=== PATIENT | female | born 1945 | race Caucasian/White ===

== ENCOUNTER 2017-01-23 20:48 | Inpatient (IN) | payer OTHER, MEDICARE ==
[~2017-01-23] VITALS: Ht 144.8 cm; Wt 81.6 kg
[2017-01-23] MEDS ORDERED: SODIUM CHLORIDE 0.9% FLUSH 10 ML FLUSH IVF PRN (21:00)
[2017-01-23 21:18] VITALS: BP 188/97; PULSE 72; RESP 16; TEMP 98.7; O2SAT 94
[2017-01-23 21:26] LABS: AUTOMATED NEUTROPHIL # 2.4 TH/MM3 (1.8-7.7); BASOPHIL % 0.6 % (0.0-2.0); EOSINOPHIL # 0.2 TH/MM3 (0-0.4); EOSINOPHIL % 4.4 % (0.0-4.0); HEMATOCRIT 41.2 % (35.0-46.0); HEMO FLAGS DIFF FINAL; LYMPHOCYTE # 2.1 TH/MM3 (1.0-4.8); MEAN CORPUSCULAR HEMOGLOBIN 31.8 PG (27.0-34.0); MEAN CORPUSCULAR HGB CONC 33.4 % (32.0-36.0); MONO % 7.4 % (0.0-8.0); NEUT % 46.6 % (16.0-70.0); PLATELET COUNT 153 TH/MM3 (150-450); RED BLOOD COUNT 4.34 MIL/MM3 (4.00-5.30); RED CELL DISTRIBUTION WIDTH 15.8 % (11.6-17.2); WHITE BLOOD COUNT 5.1 TH/MM3 (4.0-11.0)
[2017-01-23 21:31] LABS: BACTERIA, URINE RARE /hpf; BLOOD, URINE NEG (NEG); COMMENT (UR) CULTURE INDICATED; CULTURE IF INDICATED CULTURE INDICATED; GLUCOSE,URINE 1000 mg/dL (NEG); HYALINE CAST, URINE 1 /lpf (RARE); KETONE, URINE NEG (NEG); MUCUS URINE FEW /lpf (OCC); NITRITE,URINE NEG (NEG); PH, URINE 6.5 (5.0-8.5); SQUAMOUS EPITHELIAL CELL URINE 1 /hpf (0-5); URINE COLOR LIGHT-YELLOW (YELLW/STRAW)
[2017-01-23 21:36] LABS: AMPHETAMINE, URINE NEG (NEG); BARBITURATES, URINE NEG (NEG); COCAINE, URINE NEG (NEG)
--- NOTE | 2017-01-23 21:53 | RADRPT ---
EXAM DATE/TIME: 01/23/2017 21:41 [facility] COMPARISON: No previous studies available for comparison. INDICATIONS : Altered mental status. RADIATION DOSE: 43.87 CTDIvol (mGy) MEDICAL HISTORY : Non-responsive. SURGICAL HISTORY : Non-responsive. ENCOUNTER: Initial ACUITY: 1 day PAIN SCALE: Non-responsive LOCATION: Cranial TECHNIQUE: Multiple contiguous axial images were obtained of the head. Using automated exposure control and adj ustment of the mA and/or kV according to patient size, radiation dose was kept as low as reasonably a chievable to obtain optimal diagnostic quality images. FINDINGS: Diffuse cerebral atrophy is noted. Moderate periventricular and subcortical white matter small vesse l ischemic changes are noted bilaterally. There is no acute infarct, acute hemorrhage, mass effect o r extra-axial fluid collections. CONCLUSION: 1. Moderate periventricular and subcortical white matter small vessel ischemic changes bilaterally. 2. Diffuse cerebral atrophy. 3. No acute infarct, acute hemorrhage, mass effect or extra-axial fluid collections. Suhas Patino MD on January 23, 2017 at 21:49 Board Certified Radiologist. This report was verified electronically.
--- NOTE | 2017-01-23 22:04 | PD ---
HPI Chief Complaint: Psychiatric Symptoms Time Seen by Provider: 21:15 Travel History International Travel<30 days: No Contact w/Intl Traveler<30days: No Traveled to known affect area: No History of Present Illness HPI Patient is a 72-year-old female brought into the emergency Department under Lea act for psychiatric evaluation. Patient is not forthcoming and is uncooperative with interview. Per the Lea act she has a history of schizophrenia as well as dementia and has been noncompliant with her medications. Additionally patient has been urinating on herself and has made suicidal statements. She has no plan and per the report has not made any previous attempts. PFS Past Medical History Narrative Medical Pt is uncooperative Dementia: Yes (per lea act report) Schizophrenia: Yes (per lea act report) Tetanus Vaccination: Unknown ?: Not Past Surgical History Surgical History: Unable to Obtain Social History Alcohol Use: No (unable to obtain) Tobacco Use: No Substance Use: No (unable to obtain) Allergies-Medications (Allergen,Severity, Reaction): Coded Allergies: UNOBTAINABLE (Unverified , 01/23/17) Reported Meds & Prescriptions Reported Meds & Active Scripts Active Reported Kenrick Aspirin (Aspirin) 325 Mg Tab Unknown Dose PO Acetaminophen Extra Strength (Acetaminophen) 500 Mg Tablet Unknown Dose PO DIRECTED Carvedilol 25 Mg Tab 25 Mg PO BID Review of Systems ROS Limitations: Uncooperative, Refused Except as stated in HPI: all other systems reviewed are Neg Physical Exam Narrative GENERAL: Obese, well-developed, alert elderly female. Uncooperative with examination SKIN: Focused skin assessment warm/dry. HEAD: Atraumatic. Normocephalic. EYES: Pupils equal and round. No scleral icterus. No injection or drainage. ENT: No nasal bleeding or discharge. Mucous membranes pink and moist. NECK: Trachea midline. No JVD. CARDIOVASCULAR: Regular rate and rhythm. No murmur appreciated. RESPIRATORY: No accessory muscle use. Clear to auscultation. Breath sounds equal bilaterally. GASTROINTESTINAL: Abdomen obese, soft, non-tender, nondistended. Hepatic and splenic margins not palpable. Positive bowel sounds, no rebound, no guarding MUSCULOSKELETAL: No obvious deformities. No clubbing. No cyanosis. No edema. NEUROLOGICAL: Awake and alert. No obvious cranial nerve deficits. Motor grossly within normal limits. Normal speech. PSYCHIATRIC: Appropriate mood and affect; insight and judgment impaired. Data Data Last Documented VS Vital Signs Date Time Temp Pulse Resp B/P Pulse Ox O2 Delivery O2 Flow Rate FiO2 01/24/17 01:31 72 16 178/84 95 Room Air 01/23/17 21:18 98.7 Orders Complete Blood Count With Diff (01/23/17 20:57) Comprehensive Metabolic Panel (01/23/17 20:57) Thyroid Stimulating Hormone (01/23/17 20:57) Urinalysis - C+S If Indicated (01/23/17 20:57) Cath For Specimen (01/23/17 20:57) Psych Screen (01/23/17 20:57) Sodium Chloride 0.9% Flush (Ns Flush) (01/23/17 21:00) Drug Screen, Random Urine (01/23/17 20:57) Alcohol (Ethanol) (01/23/17 20:57) Salicylates (Aspirin) (01/23/17 20:57) Tylenol (Acetaminophen) (01/23/17 20:57) Ct Brain W/O Iv Contrast(Rout) (01/23/17 ) Urine Culture (01/23/17 21:11) Ceftriaxone Inj (Rocephin Inj) (01/23/17 22:15) Chest, Single Ap (01/23/17 ) Insulin Human Regular Inj (Novolin R Inj (01/23/17 22:45) Sodium Chlor 0.9% 1000 Ml Inj (Ns 1000 M (01/23/17 22:45) Hydralazine Inj (Apresoline Inj) (01/23/17 22:45) Restraints Non-Violent ANGIE.Q3H (01/23/17 22:41) B-Type Natriuretic Peptide (01/23/17 23:00) Metoprolol Tartrate Inj (Lopressor Inj) (01/23/17 23:45) Blood Glucose (01/24/17 00:43) Metoprolol Tartrate Inj (Lopressor Inj) (01/24/17 01:00) Labs Laboratory Tests Test 01/23/17 01/23/17 21:11 23:00 White Blood Count 5.1 TH/MM3 Red Blood Count 4.34 MIL/MM3 Hemoglobin 13.8 GM/DL Hematocrit 41.2 % Mean Corpuscular Volume 95.0 FL Mean Corpuscular Hemoglobin 31.8 PG Mean Corpuscular Hemoglobin 33.4 % Concent Red Cell Distribution Width 15.8 % Platelet Count 153 TH/MM3 Mean Platelet Volume 11.2 FL Neutrophils (%) (Auto) 46.6 % Lymphocytes (%) (Auto) 41.0 % Monocytes (%) (Auto) 7.4 % Eosinophils (%) (Auto) 4.4 % Basophils (%) (Auto) 0.6 % Neutrophils # (Auto) 2.4 TH/MM3 Lymphocytes # (Auto) 2.1 TH/MM3 Monocytes # (Auto) 0.4 TH/MM3 Eosinophils # (Auto) 0.2 TH/MM3 Basophils # (Auto) 0.0 TH/MM3 CBC Comment DIFF FINAL Differential Comment Urine Color LIGHT-YELLOW Urine Turbidity CLEAR Urine pH 6.5 Urine Specific [place] 1.016 Urine Protein 100 mg/dL Urine Glucose (UA) 1000 mg/dL Urine Ketones NEG mg/dL Urine Occult Blood NEG Urine Nitrite NEG Urine Bilirubin NEG Urine Urobilinogen LESS THAN 2.0 MG/DL Urine Leukocyte Esterase NEG Urine RBC 1 /hpf Urine WBC 9 /hpf Urine Squamous Epithelial 1 /hpf Cells Urine Bacteria RARE /hpf Urine Hyaline Casts 1 /lpf Urine Mucus FEW /lpf Microscopic Urinalysis Comment CULTURE INDICATED Sodium Level 140 MEQ/L Potassium Level 3.7 MEQ/L Chloride Level 103 MEQ/L Carbon Dioxide Level 30.0 MEQ/L Anion Gap 7 MEQ/L Blood Urea Nitrogen 17 MG/DL Creatinine 0.95 MG/DL Estimat Glomerular Filtration 58 ML/MIN Rate Random Glucose 316 MG/DL Calcium Level 9.4 MG/DL Total Bilirubin 0.2 MG/DL Aspartate Amino Transf 43 U/L (AST/SGOT) Alanine Aminotransferase 67 U/L (ALT/SGPT) Alkaline Phosphatase 149 U/L Total Protein 8.0 GM/DL Albumin 3.5 GM/DL Thyroid Stimulating Hormone 1.870 uIU/ML 3rd Gen Salicylates Level 8.1 MG/DL Urine Opiates Screen NEG Acetaminophen Level 13.4 MCG/ML Urine Barbiturates Screen NEG Urine Amphetamines Screen NEG Urine Benzodiazepines Screen NEG Urine Cocaine Screen NEG Urine Cannabinoids Screen NEG Ethyl Alcohol Level LESS THAN 3 MG/DL B-Type Natriuretic Peptide 50 PG/ML MDM Medical Decision Making Medical Screen Exam Complete: Yes Emergency Medical Condition: Yes Interpretation(s) Last Impressions Head CT 01/23/17 0000 Signed Impressions: Service Date/Time: Monday, January 23, 2017 21:41 - CONCLUSION: 1. Moderate periventricular and subcortical white matter small vessel ischemic changes bilaterally. 2. Diffuse cerebral atrophy. 3. No acute infarct, acute hemorrhage, mass effect or extra-axial fluid collections. Suhas Patino MD Laboratory Tests Test 01/23/17 21:11 White Blood Count 5.1 TH/MM3 Red Blood Count 4.34 MIL/MM3 Hemoglobin 13.8 GM/DL Hematocrit 41.2 % Mean Corpuscular Volume 95.0 FL Mean Corpuscular Hemoglobin 31.8 PG Mean Corpuscular Hemoglobin 33.4 % Concent Red Cell Distribution Width 15.8 % Platelet Count 153 TH/MM3 Mean Platelet Volume 11.2 FL Neutrophils (%) (Auto) 46.6 % Lymphocytes (%) (Auto) 41.0 % Monocytes (%) (Auto) 7.4 % Eosinophils (%) (Auto) 4.4 % Basophils (%) (Auto) 0.6 % Neutrophils # (Auto) 2.4 TH/MM3 Lymphocytes # (Auto) 2.1 TH/MM3 Monocytes # (Auto) 0.4 TH/MM3 Eosinophils # (Auto) 0.2 TH/MM3 Basophils # (Auto) 0.0 TH/MM3 CBC Comment DIFF FINAL Differential Comment Urine Color LIGHT-YELLOW Urine Turbidity CLEAR Urine pH 6.5 Urine Specific [place] 1.016 Urine Protein 100 mg/dL Urine Glucose (UA) 1000 mg/dL Urine Ketones NEG mg/dL Urine Occult Blood NEG Urine Nitrite NEG Urine Bilirubin NEG Urine Urobilinogen LESS THAN 2.0 MG/DL Urine Leukocyte Esterase NEG Urine RBC 1 /hpf Urine WBC 9 /hpf Urine Squamous Epithelial 1 /hpf Cells Urine Bacteria RARE /hpf Urine Hyaline Casts 1 /lpf Urine Mucus FEW /lpf Microscopic Urinalysis Comment CULTURE INDICATED Sodium Level 140 MEQ/L Potassium Level 3.7 MEQ/L Chloride Level 103 MEQ/L Carbon Dioxide Level 30.0 MEQ/L Anion Gap 7 MEQ/L Blood Urea Nitrogen 17 MG/DL Creatinine 0.95 MG/DL Estimat Glomerular Filtration 58 ML/MIN Rate Random Glucose 316 MG/DL Calcium Level 9.4 MG/DL Total Bilirubin 0.2 MG/DL Aspartate Amino Transf 43 U/L (AST/SGOT) Alanine Aminotransferase 67 U/L (ALT/SGPT) Alkaline Phosphatase 149 U/L Total Protein 8.0 GM/DL Albumin 3.5 GM/DL Thyroid Stimulating Hormone 1.870 uIU/ML 3rd Gen Salicylates Level 8.1 MG/DL Urine Opiates Screen NEG Acetaminophen Level 13.4 MCG/ML Urine Barbiturates Screen NEG Urine Amphetamines Screen NEG Urine Benzodiazepines Screen NEG Urine Cocaine Screen NEG Urine Cannabinoids Screen NEG Ethyl Alcohol Level LESS THAN 3 MG/DL Vital Signs Date Time Temp Pulse Resp B/P Pulse Ox O2 Delivery O2 Flow Rate FiO2 01/23/17 21:18 98.7 72 16 188/97 94 Differential Diagnosis UTI versus CVA versus mood disorder versus noncompliance versus delirium versus dementia versus other Narrative Course Patient is a 72-year-old female brought into the emergency department for psychiatric evaluation currently under a Lea act. Patient has allegedly made suicidal attempts and has been noncompliant with medications for schizophrenia. Patient is not forthcoming with medical history. Labs and imaging ordered and pending. Patient is mildly hypertensive on arrival. CBC is unremarkable Chemistry with mild transaminitis, glucose 316. Urine drug screen is negative, acetaminophen level, salicylates, alcohol within normal limits Urinalysis with elevated white blood cells, rare bacteria, mucus, elevated glucose level of 1000. Rocephin 1 g IV 1 dose ordered, IV fluids ordered Insulin 8 units subcutaneous ordered Hydralazine 10 mg IV [address] scan of the brain is negative for acute infarct, hemorrhage, mass. It does show moderate periventricular and subcortical white matter small vessel ischemic changes bilaterally. And diffuse cerebral atrophy. Chest x-ray shows bibasilar streakiness consistent with atelectasis and/or mild infiltrate. BNP obtained, resulted at 50. Discussed results with my attending physician. Patient's lung sounds are clear, she is currently on room air with O2 sat of 96-97%. Blood glucose reassessed at 271 0020- Blood pressure remained elevated after initial dose of hydralazine, a dose of Lopressor 2.5 mg IV was given. Patient's blood pressure is currently 186/84 with a heart rate of 75. 0040-inventory of patients belongings containing carvedilol, and diabetic test strips. Patient's past medical history will be updated this time to reflect diabetes and hypertension. Patient is medically clear for psychiatric evaluation at this time. Diagnosis Primary Impression: UTI (urinary tract infection) Qualified Code: N39.0 - Urinary tract infection without hematuria, site unspecified Additional Impressions: Noncompliance with medication regimen Hypertension Qualified Code: I10 - Essential hypertension Hyperglycemia Schizophrenia, unspecified Med/Other Pt SpecificInfo: Prescription(s) given Scripts Cephalexin 500 Mg [id number] Mg PO Q8H #30 CAP Ref 0 Prov:Nicole Monaco 01/24/17 Condition: Stable Nicole Monaco January 23, 2017 22:04
[2017-01-23 22:06] LABS: ANION GAP 7 MEQ/L (5-15); AST (GOT) 43 U/L (15-37); BLOOD UREA NITROGEN 17 MG/DL (7-18); CHLORIDE 103 MEQ/L (98-107); GLOMERULAR FILTRATION RATE 58 ML/MIN (>89); POTASSIUM 3.7 MEQ/L (3.5-5.1); SODIUM (NA) 140 MEQ/L (136-145)
[2017-01-23] MEDS ORDERED: cefTRIAXone INJ 1,000 MG in SODIUM CHLORIDE 0.9% INJ 100 ML IV ONE (22:15)
[2017-01-23 22:16] LABS: ACETAMINOPHEN 13.4 MCG/ML (10.0-30.0); ALKALINE PHOSPHATASE 149 U/L (45-117); ALT (GPT) 67 U/L (10-53); TOTAL BILIRUBIN ADULT 0.2 MG/DL (0.2-1.0)
[2017-01-23 22:40] VITALS: BP 207/98; PULSE 70; RESP 16; O2SAT 94
[2017-01-23] MEDS ORDERED: INSULIN HUMAN REGULAR 1,000 UNITS/10 ML VIAL SQ ONE (22:45)
[2017-01-23] MEDS ORDERED: hydrALAZINE HCL 20 MG/ML VIAL IV PUSH ONE (22:45)
[2017-01-23] MEDS ORDERED: SODIUM CHLOR 0.9% 1000 ML INJ 1,000 ML IV ONE (22:45)
--- NOTE | 2017-01-23 22:48 | RADRPT ---
EXAM DATE/TIME: 01/23/2017 22:22 [facility] COMPARISON: No previous studies available for comparison. INDICATIONS : Chest pain. MEDICAL HISTORY : None. SURGICAL HISTORY : None. ENCOUNTER: Initial ACUITY: 1 day PAIN SCORE: 0/10 LOCATION: Bilateral chest FINDINGS: Bibasilar streakiness is noted consistent with atelectasis and/or infiltrates. Clinical correlation is recommended. The heart is top normal in size. CONCLUSION: 1. Bibasilar streakiness consistent with atelectasis and/or mild infiltrates. Clinical correlation is recommended. Suhas Patino MD on January 23, 2017 at 22:45 Board Certified Radiologist. This report was verified electronically.
[2017-01-23 22:58] VITALS: BP 194/88; PULSE 74; RESP 17; O2SAT 94
[2017-01-23 23:34] VITALS: BP 214/95; PULSE 76; RESP 16; O2SAT 96
[2017-01-23] MEDS ORDERED: METOPROLOL TARTRATE 5 MG/5 ML VIAL IV PUSH ONE (23:45)
[2017-01-23 23:54] VITALS: BP 205/89; PULSE 75; RESP 17; O2SAT 95
[2017-01-23 23:59] VITALS: BP 186/84; PULSE 74; RESP 17; O2SAT 95
[2017-01-24] VITALS (7 sets, daily range): BP systolic 134–208; BP diastolic 84–116; PULSE 3–82; RESP 16–20; TEMP 97–97.6; O2SAT 95–97
[2017-01-24] MEDS ORDERED: CARV25TA PO (00:40)
[2017-01-24] MEDS ORDERED: BAYE325T PO (00:40)
[2017-01-24] MEDS ORDERED: ACET-898 PO (00:40)
[2017-01-24] MEDS ORDERED: METOPROLOL TARTRATE 5 MG/5 ML VIAL IV PUSH ONE (01:00)
[2017-01-24] MEDS ORDERED: CEPH500C PO (04:18)
[2017-01-24] MEDS ORDERED: CARVEDILOL 12.5 MG TAB PO ONE (06:45)
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
[2017-01-24] MEDS ORDERED: MAGNESIUM HYDROXIDE SUSP 30 ML CUP PO PRN (11:30)
[2017-01-24] MEDS ORDERED: ALUMINUM/MAGNESIUM/SIMETH 30 ML CUP PO PRN (11:30)
[2017-01-24] MEDS ORDERED: cloNIDine HCL 0.2 MG TAB PO ONE (13:15)
[2017-01-24] MEDS ORDERED: DEXTROSE 50% IN WATER 50 ML VIAL(D50) IV PRN (16:00)
[2017-01-24] MEDS: INSULIN ASPART SUPPLEMENTAL SCALE SQ SCH ×2 (16:00→21:10)
[2017-01-24] MEDS ORDERED: GLUCAGON 1 MG/ML VIAL OTHER PRN (16:00)
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
[2017-01-24] MEDS ORDERED: METOPROLOL TARTRATE 25 MG TAB PO SCH (21:00)
[2017-01-24] MEDS: CARVEDILOL 12.5 MG TAB PO SCH (21:08)
[2017-01-24] MEDS: ACETAMINOPHEN 325 MG TAB PO PRN (21:15)
[2017-01-24 22:54] LABS: BLOOD, URINE NEG (NEG); GLUCOSE,URINE 1000 mg/dL (NEG); HYALINE CAST, URINE 1 /lpf (RARE); KETONE, URINE NEG (NEG); MUCUS URINE FEW /lpf (OCC); NITRITE,URINE NEG (NEG); SQUAMOUS EPITHELIAL CELL URINE 5 /hpf (0-5); URINE COLOR YELLOW (YELLW/STRAW)
[2017-01-24 22:59] LABS: COMMENT (UR) CULTURE INDICATED; CULTURE IF INDICATED CULTURE INDICATED
[2017-01-25] MEDS: cloNIDine HCL 0.1 MG TAB PO PRN (06:03)
[2017-01-25 06:12] VITALS: BP 164/71; PULSE 73; RESP 20; TEMP 98.6; O2SAT 95
[2017-01-25] MEDS: INSULIN ASPART SUPPLEMENTAL SCALE SQ SCH ×4 (06:42→22:13)
[2017-01-25 06:53] VITALS: BP 187/100; PULSE 70
[2017-01-25 08:35] LABS: HEMOGLOBIN A1a 1.5 %; HEMOGLOBIN A1b 2.9 %; HEMOGLOBIN Ao 76.7 %; HEMOGLOBIN LA1C 2.7 %; HEMOGLOBIN P3 5.5 %
[2017-01-25] MEDS: CARVEDILOL 12.5 MG TAB PO SCH ×2 (09:00→22:06)
[2017-01-25] MEDS ORDERED: LISINOPRIL 10 MG TAB PO SCH (09:00)
--- NOTE | 2017-01-25 09:09 | RADRPT ---
EXAM DATE/TIME: 01/25/2017 08:14 [place] COMPARISON: No previous studies available for comparison. INDICATIONS : Abnormal labs. MEDICAL HISTORY : Hypertension. Dementia. Diabetes. PTSD. Schizophrenia. SURGICAL HISTORY : ENCOUNTER: Initial ACUITY: 1 day PAIN SCORE: 2/10 LOCATION: Right upper quadrant MEASUREMENTS: LIVER: 18.6 cm length COMMON DUCT: 6 mm RIGHT KIDNEY: 11.4 x 6.0 x 6.4 cm SPLEEN: 8.1 cm length FINDINGS: LIVER: Slight diffuse increased echogenicity without evidence for volume loss or ductal dilatation. COMMON DUCT: No intraluminal mass or stone visualized. GALLBLADDER: Contains no stones, demonstrates no wall thickening or pericholecystic fluid. PANCREAS: The visualized portions are within normal limits. RIGHT KIDNEY: No hydronephrosis, stone or mass. Incidental note of trace perinephric fluid SPLEEN: No focal lesion. CONCLUSION: 1. Incidental note of nonspecific trace right perinephric fluid. Right kidney is otherwise normal in appearance. 2. Diffusely increased hepatic echogenicity may reflect mild hepatic steatosis. 3. Otherwise, unremarkable ultrasound examination of the right upper quadrant. Scar Reinoso MD on January 25, 2017 at 8:59 Board Certified Radiologist. This report was verified electronically.
[2017-01-25 09:16] LABS: ANION GAP 6 MEQ/L (5-15); BICARBONATE 31.4 MEQ/L (21.0-32.0); BLOOD UREA NITROGEN 20 MG/DL (7-18); CHLORIDE 100 MEQ/L (98-107); GLOMERULAR FILTRATION RATE 73 ML/MIN (>89); POTASSIUM 3.7 MEQ/L (3.5-5.1); SODIUM (NA) 137 MEQ/L (136-145)
[2017-01-25 09:17] LABS: HDL CHOLESTEROL 43.5 MG/DL (40.0-60.0); LDL CHOLESTEROL 129 MG/DL (0-99)
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
[2017-01-25] MEDS ORDERED: PNEUMOCOCCAL POLYVALENT INJ 25 MCG/0.5 ML SYR IM ONE (10:00)
[2017-01-25] MEDS ORDERED: LISINOPRIL 10 MG TAB PO ONE (10:15)
[2017-01-25] MEDS: glyBURIDE 2.5 MG TAB PO SCH (10:15)
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
[2017-01-25] MEDS: metFORMIN HCL 500 MG TAB PO SCH ×2 (11:39→18:00)
[2017-01-25] MEDS ORDERED: LORazepam 0.5 MG TAB PO PRN (15:00)
[2017-01-25] MEDS ORDERED: LORazepam 2 MG/ML VIAL IM PRN (15:00)
[2017-01-25] MEDS ORDERED: diphenhydrAMINE HCL 25 MG CAP PO PRN (15:00)
[2017-01-25] MEDS ORDERED: diphenhydrAMINE HCL 50 MG/ML VIAL IM PRN (15:00)
[2017-01-25 17:02] VITALS: BP 145/67; PULSE 67; RESP 16; TEMP 98; O2SAT 95
[2017-01-25 18:23] VITALS: BP 145/67; PULSE 67; RESP 16; TEMP 98; O2SAT 95
--- NOTE | 2017-01-25 19:07 | HHI.PR ---
Subjective Remarks Patient denies cp/sob denies fevers or chills Bop still significantly elevated and uncontrolled. Objective Vitals Vital Signs Date Time Temp Pulse Resp B/P Pulse Ox O2 Delivery O2 Flow Rate FiO2 01/25/17 18:23 98.0 67 16 145/67 95 01/25/17 17:02 98.0 67 16 145/67 95 01/25/17 06:53 70 187/100 01/25/17 06:12 98.6 73 20 164/71 95 I/O 01/24/17 01/24/17 01/24/17 01/25/17 01/25/17 01/25/17 07:00 15:00 23:00 07:00 15:00 23:00 Intake Total 250 ml 990 ml 720 ml Balance 250 ml 990 ml 720 ml Intake Oral 250 ml 990 ml 720 ml # Voids 1 2 3 1 Result Diagram: 01/23/17 2111 01/25/17 0746 Imaging Last Impressions Liver Ultrasound 01/25/17 0000 Signed Impressions: Service Date/Time: Wednesday, January 25, 2017 08:14 - CONCLUSION: 1. Incidental note of nonspecific trace right perinephric fluid. Right kidney is otherwise normal in appearance. 2. Diffusely increased hepatic echogenicity may reflect mild hepatic steatosis. 3. Otherwise, unremarkable ultrasound examination of the right upper quadrant. Scar Reinoso MD Head CT 01/23/17 0000 Signed Impressions: Service Date/Time: Monday, January 23, 2017 21:41 - CONCLUSION: 1. Moderate periventricular and subcortical white matter small vessel ischemic changes bilaterally. 2. Diffuse cerebral atrophy. 3. No acute infarct, acute hemorrhage, mass effect or extra-axial fluid collections. Suhas Patino MD Chest X-Ray 01/23/17 0000 Signed Impressions: Service Date/Time: Monday, January 23, 2017 22:22 - CONCLUSION: 1. Bibasilar streakiness consistent with atelectasis and/or mild infiltrates. Clinical correlation is recommended. Suhas Patino MD Objective Remarks GENERAL: This is an obese, well-developed patient, in no apparent distress. SKIN: Warm and dry. HEAD: No temporal or scalp tenderness. EYES: Pupils equal round and reactive. No scleral icterus. No injection or drainage. ENT: Nose without bleeding. Throat without erythema. Uvula midline. Airway patent. NECK: Trachea midline. No JVD or lymphadenopathy. CARDIOVASCULAR: Regular rate and rhythm without murmurs, gallops, or rubs. RESPIRATORY: Diminished breath sounds. No wheezes, rales, or rhonchi. GASTROINTESTINAL: Abdomen soft, non-tender, rounded, obese. Bowel sounds present but distant. MUSCULOSKELETAL: Extremities without clubbing, cyanosis, or edema. Right foot inversion. Ambulates with walker use. NEUROLOGICAL: Awake and alert. Oriented to place, person. Forgetful. Motor and sensory grossly within normal limits. Normal speech. Medications and IVs Current Medications Medications (Trade) Dose Ordered Sig/Luis Miguel Route Start Time Stop Time Status Last Admin (NS Flush) 2 ml UNSCH PRN IVF 01/23/17 21:00 (Tylenol) 650 mg Q4H PRN PO 01/24/17 11:30 01/24/17 21:15 (Milk Of Magnesia Liq) 30 ml DAILY PRN PO 01/24/17 11:30 (Mag-Al Plus Susp Liq) 30 ml Q6H PRN PO 01/24/17 11:30 (D50w (Vial) Inj) 50 ml UNSCH PRN IV 01/24/17 16:00 (Glucagon Inj) 1 mg UNSCH PRN OTHER 01/24/17 16:00 (Catapres) 0.1 mg Q6H PRN PO 01/24/17 16:00 01/25/17 06:03 (Coreg) 25 mg BID PO 01/24/17 21:00 01/25/17 09:00 (Prinivil) 20 mg DAILY PO 01/26/17 09:00 (Glucophage) 500 mg BIDPC PO 01/25/17 10:15 01/25/17 18:00 (Diabeta) 2.5 mg DAILYAC PO 01/25/17 10:15 (Abilify) 5 mg DAILY PO 01/26/17 09:00 (Ativan) 0.5 mg Q8H PRN PO 01/25/17 15:00 (Ativan Inj) 0.5 mg Q8H PRN IM 01/25/17 15:00 (Benadryl) 25 mg Q6H PRN PO 01/25/17 15:00 (Benadryl Inj) 25 mg Q6H PRN IM 01/25/17 15:00 (Melatonin) 5 mg HS PRN PO 01/25/17 15:00 Urinary Catheter: No Vascular Central Line Catheter: No A/P Problem List: (1) Hypertension ICD Code: I10 Status: Acute (2) DM2 (diabetes mellitus, type 2) ICD Code: E11.9 Status: Acute Assessment and Plan Patient is a 72-year-old female with primary medical history of hypertension, diabetes, schizophrenia, obesity, dementia, hydrocephalus, fatty liver, uropathy, kidney stones who came into the hospital as a Lea act for psychiatric evaluation. According to review of records, patient has been noncompliant with her medications. She is now admitted to inpatient psychiatry unit for further evaluation. Consulted for medical management. Schizophrenia - managed by psychiatry team Hypertension, accelerated - Noncompliant with medications from home. UA showed leaking protein, most probably uncontrolled - Patient started on carvedilol 25 mg by mouth twice a day and lisinopril 10 minutes by mouth daily. However BP still very elevated. - Continue clonidine as needed. DM 2 - Previously on insulin at home but does not know the dose or how she is taking it - Check hemoglobin A1c - 10.6 -Continue SSI with insulin NovoLog. - Accu-Cheks. Monitor for hypoglycemia - We'll start on oral metformin and glyburide for uncontrolled diabetes mellitus and very elevated blood sugars. However the patient might require insulin. Questionable hydrocephalus - Patient had poor balance, needing walker with ambulation - Complains of forgetfulness and numbness in her hand -CT of the head showed moderate periventricular and subcortical white matter small vessel ischemic changes bilaterally. Diffuse cerebral atrophy. No acute infarct or hemorrhage, mass effect or extra-axial fluid collections, however does not make detection of signs concurrent with hydrocephalus. Transaminitis, elevated liver enzymes - For enzymes likely secondary to hepatic steatosis as observed on ultrasound. - Trend liver enzymes - Check hepatitis panel - negative DVT prop ambulatory Problem Qualifiers (1) Hypertension: Qualified Code: I10 - Essential hypertension Marcelino Hernandez MD January 25, 2017 19:07
[2017-01-26 05:10] VITALS: BP 142/65; PULSE 60; RESP 18; TEMP 97.2; O2SAT 93
[2017-01-26] MEDS: INSULIN ASPART SUPPLEMENTAL SCALE SQ SCH ×4 (06:45→20:00)
[2017-01-26] MEDS ORDERED: ARIPiprazole 5 MG TAB PO SCH (09:00)
[2017-01-26] MEDS: CARVEDILOL 12.5 MG TAB PO SCH ×2 (09:01→20:00)
[2017-01-26] MEDS: metFORMIN HCL 500 MG TAB PO SCH ×2 (09:01→18:00)
[2017-01-26] MEDS: glyBURIDE 2.5 MG TAB PO SCH (09:01)
[2017-01-26] MEDS: LISINOPRIL 20 MG TAB PO SCH (09:01)
[2017-01-26] MEDS: ACETAMINOPHEN 325 MG TAB PO PRN ×2 (09:12→20:00)
[2017-01-26] MEDS: PRAVASTATIN SOD 20 MG TAB PO SCH (11:00)
[2017-01-26] MEDS ORDERED: glyBURIDE 2.5 MG TAB PO ONE (11:00)
--- NOTE | 2017-01-26 11:03 | HHI.PR ---
Subjective Remarks Bp seems to be better Patient c/o pain, tingling and numbness on both hands denies fevers/chills denies cough blood sugars still elevated in the 200's Objective Vitals Vital Signs Date Time Temp Pulse Resp B/P Pulse Ox O2 Delivery O2 Flow Rate FiO2 01/26/17 05:10 97.2 60 18 142/65 93 01/25/17 18:23 98.0 67 16 145/67 95 01/25/17 17:02 98.0 67 16 145/67 95 I/O 01/25/17 01/25/17 01/25/17 01/26/17 01/26/17 01/26/17 07:00 15:00 23:00 07:00 15:00 23:00 Intake Total 1320 ml Output Total 1 ml 1 ml Balance 1319 ml -1 ml Intake Oral 1320 ml Output Stool Total 1 ml 1 ml # Voids 3 4 1 Result Diagram: 01/23/17 2111 01/25/17 0746 Imaging Last Impressions Liver Ultrasound 01/25/17 0000 Signed Impressions: Service Date/Time: Wednesday, January 25, 2017 08:14 - CONCLUSION: 1. Incidental note of nonspecific trace right perinephric fluid. Right kidney is otherwise normal in appearance. 2. Diffusely increased hepatic echogenicity may reflect mild hepatic steatosis. 3. Otherwise, unremarkable ultrasound examination of the right upper quadrant. Scar Reinoso MD Head CT 01/23/17 0000 Signed Impressions: Service Date/Time: Monday, January 23, 2017 21:41 - CONCLUSION: 1. Moderate periventricular and subcortical white matter small vessel ischemic changes bilaterally. 2. Diffuse cerebral atrophy. 3. No acute infarct, acute hemorrhage, mass effect or extra-axial fluid collections. Suhas Patino MD Chest X-Ray 01/23/17 0000 Signed Impressions: Service Date/Time: Monday, January 23, 2017 22:22 - CONCLUSION: 1. Bibasilar streakiness consistent with atelectasis and/or mild infiltrates. Clinical correlation is recommended. Suhas Patino MD Objective Remarks GENERAL: This is an obese, well-developed patient, in no apparent distress. SKIN: Warm and dry. HEAD: No temporal or scalp tenderness. EYES: Pupils equal round and reactive. No scleral icterus. No injection or drainage. ENT: Nose without bleeding. Throat without erythema. Uvula midline. Airway patent. NECK: Trachea midline. No JVD or lymphadenopathy. CARDIOVASCULAR: Regular rate and rhythm without murmurs, gallops, or rubs. RESPIRATORY: Diminished breath sounds. No wheezes, rales, or rhonchi. GASTROINTESTINAL: Abdomen soft, non-tender, rounded, obese. Bowel sounds present but distant. MUSCULOSKELETAL: Extremities without clubbing, cyanosis, or edema. Right foot inversion. Ambulates with walker use. NEUROLOGICAL: Awake and alert. Oriented to place, person. Forgetful. Motor and sensory grossly within normal limits. Normal speech. Procedures none Medications and IVs Current Medications Medications (Trade) Dose Ordered Sig/Luis Miguel Route Start Time Stop Time Status Last Admin (NS Flush) 2 ml UNSCH PRN IVF 01/23/17 21:00 (Tylenol) 650 mg Q4H PRN PO 01/24/17 11:30 01/26/17 09:12 (Milk Of Magnesia Liq) 30 ml DAILY PRN PO 01/24/17 11:30 (Mag-Al Plus Susp Liq) 30 ml Q6H PRN PO 01/24/17 11:30 (D50w (Vial) Inj) 50 ml UNSCH PRN IV 01/24/17 16:00 (Glucagon Inj) 1 mg UNSCH PRN OTHER 01/24/17 16:00 (Catapres) 0.1 mg Q6H PRN PO 01/24/17 16:00 01/25/17 06:03 (Coreg) 25 mg BID PO 01/24/17 21:00 01/26/17 09:01 (Prinivil) 20 mg DAILY PO 01/26/17 09:00 01/26/17 09:01 (Glucophage) 500 mg BIDPC PO 01/25/17 10:15 01/26/17 09:01 (Ativan) 0.5 mg Q8H PRN PO 01/25/17 15:00 (Ativan Inj) 0.5 mg Q8H PRN IM 01/25/17 15:00 (Benadryl) 25 mg Q6H PRN PO 01/25/17 15:00 (Benadryl Inj) 25 mg Q6H PRN IM 01/25/17 15:00 (Melatonin) 5 mg HS PRN PO 01/25/17 15:00 (Neurontin) 300 mg TID PO 01/26/17 13:00 01/26/17 12:14 (Diabeta) 5 mg DAILYAC PO 01/27/17 08:00 (Pravachol) 20 mg DAILY PO 01/26/17 11:00 (Cipro) 500 mg Q12HR PO 01/26/17 21:00 01/29/17 20:59 (Abilify) 10 mg DAILY PO 01/27/17 09:00 Urinary Catheter: No Vascular Central Line Catheter: No A/P Problem List: (1) Hypertension ICD Code: I10 Status: Acute (2) DM2 (diabetes mellitus, type 2) ICD Code: E11.9 Status: Acute Assessment and Plan Patient is a 72-year-old female with primary medical history of hypertension, diabetes, schizophrenia, obesity, dementia, hydrocephalus, fatty liver, uropathy, kidney stones who came into the hospital as a Lea act for psychiatric evaluation. According to review of records, patient has been noncompliant with her medications. She is now admitted to inpatient psychiatry unit for further evaluation. Consulted for medical management. Schizophrenia - managed by psychiatry team Hypertension, accelerated - Noncompliant with medications from home. UA showed leaking protein, most probably uncontrolled. - Patient started on carvedilol 25 mg by mouth twice a day and lisinopril 10 mg po daily. - Lisinopril dose was increased to 20 mg po daily on 01/25 with improvement on BP. -Continue current antihypertensive medications. Continue clonidine when necessary. DM 2 - Check hemoglobin A1c - 10.6 -Resume home insulin. However given the patient's associated schizophrenia. He is probably not the best idea to keep the patient on insulin, especially if she doesn't have someone that will take care of her. -Patient started on oral metformin and glyburide with some degree of improvement in blood sugars. I will increase the dose of glyburide from 2.5-5 minutes by mouth daily. -Also after the patient takes metformin for a week and there are no significant GI adverse effects I would increase metformin dose to 1000 by mouth twice a day. -For now continue oral metformin and glyburide. Continue to monitor Accu- Cheks and continue to cover. Elevated blood sugars with SSI with insulin NovoLog. Questionable hydrocephalus - Patient had poor balance, needing walker with ambulation - Complains of forgetfulness and numbness in her hand -CT of the head showed moderate periventricular and subcortical white matter small vessel ischemic changes bilaterally. Diffuse cerebral atrophy. No acute infarct or hemorrhage, mass effect or extra-axial fluid collections, however does not make detection of signs concurrent with hydrocephalus. Transaminitis, elevated liver enzymes - For enzymes likely secondary to hepatic steatosis as observed on ultrasound. - Trend liver enzymes - Hepatitis profile negative. DVT prop ambulatory Problem Qualifiers (1) Hypertension: Qualified Code: I10 - Essential hypertension Marcelino Hernandez MD January 26, 2017 11:03
[2017-01-26] MEDS: GABAPENTIN 300 MG CAP PO SCH ×2 (12:14→18:00)
--- NOTE | 2017-01-26 12:47 | HHI.PYPN ---
Subjective Remarks Patient was seen today for psychiatric evaluation by psychiatric team, social service manager Margoth, nurse in charge Maricel and myself. Patient is found laying in her bed, she is calm and cooperative, smiling often, she reports good mood, reports good appetite, good level of energy and asleep. However patient reports paranoia against the staff, she says that she doesn't know if some of this people want to kill her. Patient also becomes disorganized at time needing redirection. Patient is fully oriented 3, without attention deficit, she is compliant with medications, no significant side effects. No periods of agitation or hostility or aggressive behavior reported. Review of Systems Constitutional: DENIES: Diaphoretic episodes, Fatigue, Fever, Weight gain, Weight loss, Chills, Dizziness, Change in appetite, Night Sweats Endocrine: DENIES: Abnorml menstrual pattern, Heat/cold intolerance, Polydipsia , Polyuria, Polyphagia Other No somatic complaints Objective Alert: Yes [place]: Person (ox4), Place, Date Mood: Calm Affect: Other (labile) Memory Intact: Comment ( Recall 3/3, 2/3, 2/3. able to spell world and dlrow. ) Hallucinations: Other (she denies today) Delusions: Yes Delusion Type: Paranoid Suicidal: Ideation (deneis at present) Homicidal: Ideation (deneis at present) Insight/Judgment Poor Labs Date/Time Procedure Status Source Growth 01/24/17 22:25 Urine Culture - Final Complete Urine Random Urine Enterococcus Faecalis Vitals/IOs Vital Signs Date Time Temp Pulse Resp B/P Pulse Ox O2 Delivery O2 Flow Rate FiO2 01/26/17 05:10 97.2 60 18 142/65 93 01/24/17 11:30 Room Air Intake and Output 01/25/17 01/25/17 01/26/17 08:00 16:00 00:00 Intake Total 1320 ml Output Total 1 ml Balance 1319 ml Assessment & Plan Problem List: (1) Paranoid schizophrenia Assessment & Plan: We will increase Abilify to 10 mg for psychosis. ICD Code: F20.0 Assessment & Plan Estimated LOS: days Justification for Cont. Inpt. Patient continues to be acutely psychotic, needs to continue inpatient level of care Request HC Surrog/Guard Advoc?: Yes Dyllan Morrell MD January 26, 2017 12:47
[2017-01-26 19:22] VITALS: BP 176/81; PULSE 75; RESP 18; TEMP 98; O2SAT 95
[2017-01-26] MEDS: CIPROFLOXACIN 500 MG TAB PO SCH (20:00)
[2017-01-26] MEDS: MELATONIN 5 MG TAB PO PRN (20:00)
[2017-01-27 04:00] VITALS: BP 156/77; PULSE 65; RESP 18; TEMP 97.1; O2SAT 95
[2017-01-27 05:14] VITALS: BP 156/77; PULSE 65; RESP 18; TEMP 97.1; O2SAT 95
[2017-01-27] MEDS: INSULIN ASPART SUPPLEMENTAL SCALE SQ SCH ×4 (05:49→21:00)
[2017-01-27] MEDS: ARIPiprazole 10 MG TAB PO SCH (09:00)
[2017-01-27] MEDS: GABAPENTIN 300 MG CAP PO SCH ×3 (09:56→18:00)
[2017-01-27] MEDS: glyBURIDE 5 MG TAB PO SCH (09:56)
[2017-01-27] MEDS: CARVEDILOL 12.5 MG TAB PO SCH ×2 (09:56→21:34)
[2017-01-27] MEDS: metFORMIN HCL 500 MG TAB PO SCH ×2 (09:56→18:00)
[2017-01-27] MEDS: LISINOPRIL 20 MG TAB PO SCH (09:56)
[2017-01-27] MEDS: CIPROFLOXACIN 500 MG TAB PO SCH ×2 (09:57→21:31)
[2017-01-27] MEDS: PRAVASTATIN SOD 20 MG TAB PO SCH (09:57)
--- NOTE | 2017-01-27 12:32 | HHI.PYPN ---
Subjective Remarks Patient seen for psychiatric reevaluation today, patient is calm, cooperative and in a good spirits, she stated that she is happy to be in the unit, she says "this is better than [place]", she reports good mood, denies depression, denies hopelessness helplessness, denies suicidal or homicidal ideation. Patient is oriented 3, without attention deficit, but seems to be disorganized at times, reports frequent auditory hallucinations on and off, voices of family members bothering her. Review of Systems Other No somatic complaints Objective Alert: Yes [place]: Person (ox4), Place, Date Mood: Calm Affect: Other (labile) Memory Intact: Comment ( Recall /3, 2/3, 2/3. able to spell world and dlrow. ) Hallucinations: Auditory Delusions: Yes Delusion Type: Paranoid Suicidal: Ideation (deneis at present) Homicidal: Ideation (deneis at present) Insight/Judgment Poor Labs Date/Time Procedure Status Source Growth 01/24/17 22:25 Urine Culture - Final Complete Urine Random Urine Enterococcus Faecalis Vitals/IOs Vital Signs Date Time Temp Pulse Resp B/P Pulse Ox O2 Delivery O2 Flow Rate FiO2 01/27/17 05:14 97.1 65 18 156/77 95 01/24/17 11:30 Room Air Intake and Output 01/26/17 01/26/17 01/27/17 08:00 16:00 00:00 Intake Total 720 ml 600 ml Output Total 1 ml Balance -1 ml 720 ml 600 ml Assessment & Plan Problem List: (1) Paranoid schizophrenia Assessment & Plan: Patient continues to be disorganized, reporting auditory hallucinations, but no agitation or aggressive behavior reported. Will continue Abilify 10 mg. ICD Code: F20.0 Assessment & Plan Estimated LOS: days Justification for Cont. Inpt. Patient has an elevated risk to decompensate at a lower level of care. Request HC Surrog/Guard Advoc?: Yes Dyllan Morrell MD Jan 27, 2017 12:32
--- NOTE | 2017-01-27 13:22 | HHI.PR ---
Subjective Remarks Follow-up on patient with hypertension, diabetes, schizophrenia, obesity, dementia, hydrocephalus, fatty liver, uropathy and kidney stones. Patient seen and examined today. Overall, patient states she's feeling well. She does complain of pain and numbness in both hands over the palmar aspect of the first through third digits which is worse early in the morning. She states the pain is somewhat relieved with application of lotion. She denies any previous history of carpal tunnel syndrome but states her sisters had to have surgery for CTS. she denies any other pain or discomfort. She denies any fever, chills , headache, dizziness, nausea, vomiting, shortness of breath, chest pain or abdominal pain. Objective Vitals Vital Signs Date Time Temp Pulse Resp B/P Pulse Ox O2 Delivery O2 Flow Rate FiO2 01/27/17 05:14 97.1 65 18 156/77 95 01/27/17 04:00 97.1 65 18 156/77 95 01/26/17 19:22 98.0 75 18 176/81 95 I/O 01/26/17 01/26/17 01/26/17 01/27/17 01/27/17 01/27/17 07:00 15:00 23:00 07:00 15:00 23:00 Intake Total 720 ml 600 ml 0 ml 720 ml Output Total 1 ml 0 ml Balance -1 ml 720 ml 600 ml 0 ml 720 ml Intake Oral 720 ml 600 ml 0 ml 720 ml Output Urine Total 0 ml Stool Total 1 ml # Voids 1 1 Result Diagram: 01/23/17 2111 01/25/17 0746 Imaging Last Impressions Liver Ultrasound 01/25/17 0000 Signed Impressions: Service Date/Time: Wednesday, January 25, 2017 08:14 - CONCLUSION: 1. Incidental note of nonspecific trace right perinephric fluid. Right kidney is otherwise normal in appearance. 2. Diffusely increased hepatic echogenicity may reflect mild hepatic steatosis. 3. Otherwise, unremarkable ultrasound examination of the right upper quadrant. Scar Reinoso MD Head CT 01/23/17 0000 Signed Impressions: Service Date/Time: Monday, January 23, 2017 21:41 - CONCLUSION: 1. Moderate periventricular and subcortical white matter small vessel ischemic changes bilaterally. 2. Diffuse cerebral atrophy. 3. No acute infarct, acute hemorrhage, mass effect or extra-axial fluid collections. Suhas Patino MD Chest X-Ray 01/23/17 0000 Signed Impressions: Service Date/Time: Monday, January 23, 2017 22:22 - CONCLUSION: 1. Bibasilar streakiness consistent with atelectasis and/or mild infiltrates. Clinical correlation is recommended. Suhas Patino MD Objective Remarks GENERAL: This is an obese, well-developed patient, in no apparent distress. Awake and alert. Sitting up in bedside chair. SKIN: Warm and dry. HEAD: No temporal or scalp tenderness. EYES: EOMI. No scleral icterus. No injection or drainage. CARDIOVASCULAR: Regular rate and rhythm without murmurs, gallops, or rubs. RESPIRATORY: Diminished breath sounds. No wheezes, rales, or rhonchi. GASTROINTESTINAL: Abdomen soft, non-tender, rounded, obese. Bowel sounds present but distant. MUSCULOSKELETAL: Extremities without clubbing, cyanosis, or edema. Right foot inversion. Ambulates with walker use. (+)Tinel's bilaterally. Intact it analyst strength. NEUROLOGICAL: Awake and alert. Oriented to place, person. Forgetful. Motor and sensory grossly within normal limits. Normal speech. Procedures none Medications and IVs Current Medications Medications (Trade) Dose Ordered Sig/Luis Miguel Route Start Time Stop Time Status Last Admin (NS Flush) 2 ml UNSCH PRN IVF 01/23/17 21:00 (Tylenol) 650 mg Q4H PRN PO 01/24/17 11:30 01/26/17 20:00 (Milk Of Magnesia Liq) 30 ml DAILY PRN PO 01/24/17 11:30 (Mag-Al Plus Susp Liq) 30 ml Q6H PRN PO 01/24/17 11:30 (D50w (Vial) Inj) 50 ml UNSCH PRN IV 01/24/17 16:00 (Glucagon Inj) 1 mg UNSCH PRN OTHER 01/24/17 16:00 (Catapres) 0.1 mg Q6H PRN PO 01/24/17 16:00 01/25/17 06:03 (Coreg) 25 mg BID PO 01/24/17 21:00 01/27/17 09:56 (Prinivil) 20 mg DAILY PO 01/26/17 09:00 01/27/17 09:56 (Glucophage) 500 mg BIDPC PO 01/25/17 10:15 01/27/17 09:56 (Ativan) 0.5 mg Q8H PRN PO 01/25/17 15:00 (Ativan Inj) 0.5 mg Q8H PRN IM 01/25/17 15:00 (Benadryl) 25 mg Q6H PRN PO 01/25/17 15:00 (Benadryl Inj) 25 mg Q6H PRN IM 01/25/17 15:00 (Melatonin) 5 mg HS PRN PO 01/25/17 15:00 01/26/17 20:00 (Neurontin) 300 mg TID PO 01/26/17 13:00 01/27/17 12:38 (Diabeta) 5 mg DAILYAC PO 01/27/17 08:00 01/27/17 09:56 (Pravachol) 20 mg DAILY PO 01/26/17 11:00 01/27/17 09:57 (Cipro) 500 mg Q12HR PO 01/26/17 21:00 01/29/17 20:59 01/27/17 09:57 (Abilify) 10 mg DAILY PO 01/27/17 09:00 01/27/17 09:00 A/P Problem List: (1) Hypertension ICD Code: I10 Status: Acute (2) DM2 (diabetes mellitus, type 2) ICD Code: E11.9 Status: Acute Assessment and Plan Patient is a 72-year-old female with primary medical history of hypertension, diabetes, schizophrenia, obesity, dementia, hydrocephalus, fatty liver, uropathy, kidney stones who came into the hospital as a Lea act for psychiatric evaluation. According to review of records, patient has been noncompliant with her medications. She is now admitted to inpatient psychiatry unit for further evaluation. Consulted for medical management. Schizophrenia - managed by psychiatry team Hypertension, accelerated - Noncompliant with medications from home. UA showed leaking protein, most probably uncontrolled. - Patient started on carvedilol 25 mg by mouth twice a day and lisinopril 10 mg po daily. - Lisinopril dose was increased to 20 mg po daily on 01/25 with improvement on BP. - Continue current antihypertensive medications. Continue clonidine when necessary. DM 2 - Check hemoglobin A1c - 10.6 - Resume home insulin. However given the patient's associated schizophrenia , probably not the best idea to keep the patient on insulin, especially if she doesn't have someone that will take care of her. - Continue on Metformin - Glyburide increased to 5 mg by mouth daily, continue - Also after the patient takes metformin for a week and there are no significant GI adverse effects, would increase metformin dose to 1000 by mouth twice a day. - Continue oral metformin and glyburide. - Continue to monitor Accu-Cheks and continue to cover. Elevated blood sugars with SSI with insulin NovoLog. Questionable hydrocephalus - Patient had poor balance, needing walker with ambulation - Complains of forgetfulness and numbness in her hand - CT of the head showed moderate periventricular and subcortical white matter small vessel ischemic changes bilaterally. Diffuse cerebral atrophy. No acute infarct or hemorrhage, mass effect or extra-axial fluid collections, however does not make detection of signs concurrent with hydrocephalus. Transaminitis, elevated liver enzymes - elevated enzymes likely secondary to hepatic steatosis as observed on ultrasound. - Trend liver enzymes - Hepatitis profile negative. UTI - UCX positive for Enterococcus Faecalis - started on Cipro, complete course x 3 days Vitamin D deficiency - Begin oral supplementation - Will need to have level rechecked by PCP as outpatient Suspect CTS bilaterally - trial of splints for nighttime use - may need EMG study as outpatient DVT prop ambulatory Discussed with nursing staff, patient and Dr. Diaz Problem Qualifiers (1) Hypertension: Qualified Code: I10 - Essential hypertension Vane Payne Jan 27, 2017 13:22
[2017-01-27 13:36] VITALS: BP 165/75; PULSE 75
[2017-01-28] MEDS: cloNIDine HCL 0.1 MG TAB PO PRN (04:59)
[2017-01-28 05:28] VITALS: BP 177/81; PULSE 70; RESP 16; TEMP 97.8; O2SAT 94
[2017-01-28] MEDS: INSULIN ASPART SUPPLEMENTAL SCALE SQ SCH ×4 (06:33→21:00)
[2017-01-28 06:38] LABS: INDIRECT BILIRUBIN 0.3 MG/DL (0.0-0.8); TOTAL BILIRUBIN ADULT 0.4 MG/DL (0.2-1.0)
[2017-01-28] MEDS: GABAPENTIN 300 MG CAP PO SCH ×3 (08:59→18:00)
[2017-01-28] MEDS: PRAVASTATIN SOD 20 MG TAB PO SCH (08:59)
[2017-01-28] MEDS: LISINOPRIL 20 MG TAB PO SCH (08:59)
[2017-01-28] MEDS: metFORMIN HCL 500 MG TAB PO SCH ×2 (08:59→18:00)
[2017-01-28] MEDS: CHOLECALCIFEROL (VIT D3) 1000 UNIT TAB PO SCH (08:59)
[2017-01-28] MEDS: ARIPiprazole 10 MG TAB PO SCH (08:59)
[2017-01-28] MEDS: CARVEDILOL 12.5 MG TAB PO SCH ×2 (08:59→21:05)
[2017-01-28] MEDS: glyBURIDE 5 MG TAB PO SCH (08:59)
[2017-01-28] MEDS: CIPROFLOXACIN 500 MG TAB PO SCH ×2 (08:59→21:05)
--- NOTE | 2017-01-28 11:52 | HHI.PYPN ---
Subjective Remarks Patient was seen today for psychiatric reevaluation along with nurse in charge Don, patient is calm, cooperative, pleasant. She reports good mood, she says that she feels happy and in the unit, reports good sleep, low level of appetite, but quite disorganized and tangential in her conversation. Patient also reports auditory hallucinations. Patient has moments of agitation in the unit, but she is easily redirectable. She is oriented 3, no attention deficit , she is compliant with medications, no significant side effects. Review of Systems Other No somatic complaints Objective Alert: Yes [place]: Person (ox4), Place, Date Mood: Calm Affect: Other (labile) Memory Intact: Comment ( Recall 3, /3, 2/3. able to spell world and dlrow. ) Hallucinations: Auditory Delusions: Yes Delusion Type: Paranoid Suicidal: Ideation (deneis at present) Homicidal: Ideation (deneis at present) Insight/Judgment Poor Labs Test 01/28/17 04:32 Total Bilirubin 0.4 MG/DL Direct Bilirubin 0.1 MG/DL Indirect Bilirubin 0.3 MG/DL Aspartate Amino Transf 41 U/L (AST/SGOT) Alanine Aminotransferase 55 U/L (ALT/SGPT) Alkaline Phosphatase 85 U/L Total Protein 6.7 GM/DL Albumin 2.8 GM/DL Date/Time Procedure Status Source Growth 01/24/17 22:25 Urine Culture - Final Complete Urine Random Urine Enterococcus Faecalis Vitals/IOs Vital Signs Date Time Temp Pulse Resp B/P Pulse Ox O2 Delivery O2 Flow Rate FiO2 01/28/17 05:28 97.8 70 16 177/81 94 01/24/17 11:30 Room Air Intake and Output 01/27/17 01/27/17 01/28/17 08:00 16:00 00:00 Intake Total 0 ml 2160 ml 3600 ml Output Total 0 ml 1 ml Balance 0 ml 2160 ml 3599 ml Assessment & Plan Problem List: (1) Paranoid schizophrenia Assessment & Plan: Will increase Abilify to 20 mg to help with psychosis. ICD Code: F20.0 Assessment & Plan Estimated LOS: days Justification for Cont. Inpt. Patient is acutely psychotic and needs to continue psychiatric hospitalization for stabilization. Request HC Surrog/Guard Advoc?: Yes Dyllan Morrell MD Jan 28, 2017 11:52
--- NOTE | 2017-01-28 15:25 | HHI.PR ---
Subjective Remarks Follow-up on patient with hypertension, diabetes, schizophrenia, obesity, dementia, hydrocephalus, fatty liver, uropathy and kidney stones. Patient seen and examined today. Patient denies any improvement in bilateral hand pain with use of night splints. Will order a trial of NSAIDs. Overall patient doing well with no acute complaints today. Denies any fever chills. No nausea vomiting or abdominal pain. No chest pain or shortness of breath. Objective Vitals Vital Signs Date Time Temp Pulse Resp B/P Pulse Ox O2 Delivery O2 Flow Rate FiO2 01/28/17 05:28 97.8 70 16 177/81 94 I/O 01/27/17 01/27/17 01/27/17 01/28/17 01/28/17 01/28/17 07:00 15:00 23:00 07:00 15:00 23:00 Intake Total 0 ml 2160 ml 3600 ml 1440 ml Output Total 0 ml 1 ml Balance 0 ml 2160 ml 3599 ml 1440 ml Intake Oral 0 ml 2160 ml 3600 ml 1440 ml Output Urine Total 0 ml Stool Total 1 ml # Voids 5 1 1 Result Diagram: 01/23/17 2111 01/25/17 0746 Imaging Last Impressions Liver Ultrasound 01/25/17 0000 Signed Impressions: Service Date/Time: Wednesday, January 25, 2017 08:14 - CONCLUSION: 1. Incidental note of nonspecific trace right perinephric fluid. Right kidney is otherwise normal in appearance. 2. Diffusely increased hepatic echogenicity may reflect mild hepatic steatosis. 3. Otherwise, unremarkable ultrasound examination of the right upper quadrant. Scar Reinoso MD Head CT 01/23/17 0000 Signed Impressions: Service Date/Time: Monday, January 23, 2017 21:41 - CONCLUSION: 1. Moderate periventricular and subcortical white matter small vessel ischemic changes bilaterally. 2. Diffuse cerebral atrophy. 3. No acute infarct, acute hemorrhage, mass effect or extra-axial fluid collections. Suhas Patino MD Chest X-Ray 01/23/17 0000 Signed Impressions: Service Date/Time: Monday, January 23, 2017 22:22 - CONCLUSION: 1. Bibasilar streakiness consistent with atelectasis and/or mild infiltrates. Clinical correlation is recommended. Suhas Patino MD Objective Remarks GENERAL: This is an obese, well-developed patient, in no apparent distress. Awake and alert. Sitting up in bedside chair. SKIN: Warm and dry. HEAD: Atraumatic normocephalic. EYES: EOMI. No scleral icterus. No injection or drainage. CARDIOVASCULAR: Regular rate and rhythm without murmurs, gallops, or rubs. RESPIRATORY: Diminished breath sounds. No wheezes, rales, or rhonchi. GASTROINTESTINAL: Abdomen soft, non-tender, rounded, obese. Bowel sounds present but distant. MUSCULOSKELETAL: Extremities without clubbing, cyanosis, or edema. Right foot inversion. Ambulates with walker use. (+)Tinel's bilaterally. Slightly weak title insurance examiner strength on the right. NEUROLOGICAL: Awake and alert. Oriented to place, person. Forgetful. Motor and sensory grossly within normal limits. Normal speech. Procedures none Medications and IVs Current Medications Medications (Trade) Dose Ordered Sig/Luis Miguel Route Start Time Stop Time Status Last Admin (NS Flush) 2 ml UNSCH PRN IVF 01/23/17 21:00 (Tylenol) 650 mg Q4H PRN PO 01/24/17 11:30 01/26/17 20:00 (Milk Of Magnesia Liq) 30 ml DAILY PRN PO 01/24/17 11:30 (Mag-Al Plus Susp Liq) 30 ml Q6H PRN PO 01/24/17 11:30 (D50w (Vial) Inj) 50 ml UNSCH PRN IV 01/24/17 16:00 (Glucagon Inj) 1 mg UNSCH PRN OTHER 01/24/17 16:00 (Catapres) 0.1 mg Q6H PRN PO 01/24/17 16:00 01/28/17 04:59 (Coreg) 25 mg BID PO 01/24/17 21:00 01/28/17 08:59 (Prinivil) 20 mg DAILY PO 01/26/17 09:00 01/28/17 08:59 (Glucophage) 500 mg BIDPC PO 01/25/17 10:15 01/28/17 08:59 (Ativan) 0.5 mg Q8H PRN PO 01/25/17 15:00 (Ativan Inj) 0.5 mg Q8H PRN IM 01/25/17 15:00 (Benadryl) 25 mg Q6H PRN PO 01/25/17 15:00 (Benadryl Inj) 25 mg Q6H PRN IM 01/25/17 15:00 (Melatonin) 5 mg HS PRN PO 01/25/17 15:00 01/26/17 20:00 (Neurontin) 300 mg TID PO 01/26/17 13:00 01/28/17 13:00 (Diabeta) 5 mg DAILYAC PO 01/27/17 08:00 01/28/17 08:59 (Pravachol) 20 mg DAILY PO 01/26/17 11:00 01/28/17 08:59 (Cipro) 500 mg Q12HR PO 01/26/17 21:00 01/29/17 20:59 01/28/17 08:59 (Vitamin D3) 1,000 units DAILY PO 01/28/17 09:00 01/28/17 08:59 (Abilify) 20 mg DAILY PO 01/29/17 09:00 A/P Problem List: (1) Hypertension ICD Code: I10 Status: Acute (2) DM2 (diabetes mellitus, type 2) ICD Code: E11.9 Status: Acute Assessment and Plan Patient is a 72-year-old female with primary medical history of hypertension, diabetes, schizophrenia, obesity, dementia, hydrocephalus, fatty liver, uropathy, kidney stones who came into the hospital as a Lea act for psychiatric evaluation. According to review of records, patient has been noncompliant with her medications. She is now admitted to inpatient psychiatry unit for further evaluation. Consulted for medical management. Schizophrenia - managed by psychiatry team Hypertension, accelerated - Noncompliant with medications from home. UA showed leaking protein, most probably uncontrolled. - Continue on carvedilol and lisinopril. Add Norvasc as blood pressure still uncontrolled. - Continue clonidine when necessary. - Continue to monitor BP and adjust treatment as indicated. DM 2 - Hemoglobin A1c - 10.6 - Continue home insulin. However given the patient's associated schizophrenia, probably not the best idea to keep the patient on insulin, especially if she doesn't have someone that will take care of her. - Continue on Metformin and Glyburide - Also after the patient takes metformin for a week and there are no significant GI adverse effects, would increase metformin dose to 1000 by mouth twice a day. - Continue to monitor Accu-Cheks and continue to cover. Elevated blood sugars with SSI with insulin NovoLog. - Good control at present with a.m. blood sugar at 111. Questionable hydrocephalus - Patient had poor balance, needing walker with ambulation - Complains of forgetfulness and numbness in her hand - CT of the head showed moderate periventricular and subcortical white matter small vessel ischemic changes bilaterally. Diffuse cerebral atrophy. No acute infarct or hemorrhage, mass effect or extra-axial fluid collections, however does not make detection of signs concurrent with hydrocephalus. - Patient evaluated by PT - able to ambulate 200 feet with a rolling walker with no loss of balance and good lower extremity strength. Transaminitis, elevated liver enzymes - elevated enzymes likely secondary to hepatic steatosis as observed on ultrasound. - Trend liver enzymes - trending down AST 43 --> 41, ALT 67 --> 55 - Hepatitis profile negative. UTI - UCX positive for Enterococcus Faecalis - started on Cipro, complete course x 3 days Vitamin D deficiency - Continue oral supplementation - Will need to have level rechecked by PCP as outpatient Suspect CTS bilaterally - trial of splints for nighttime use not beneficial - may need EMG study as outpatient - Recommend follow-up as outpatient with PCP for further evaluation - Trial of Naproxen DVT prop ambulatory Discussed with nursing staff, patient and Dr. Diaz Problem Qualifiers (1) Hypertension: Qualified Code: I10 - Essential hypertension Vane Payne Jan 28, 2017 15:25
[2017-01-28] MEDS: NAPROXEN 375 MG TAB PO SCH ×2 (15:30→21:05)
[2017-01-28] MEDS ORDERED: amLODIPine BESYLATE 5 MG TAB PO ONE (15:30)
[2017-01-28 17:01] VITALS: BP 167/90; PULSE 67; RESP 16; O2SAT 95
[2017-01-28] MEDS: MELATONIN 5 MG TAB PO PRN (21:06)
[2017-01-29 05:53] VITALS: BP 185/89; PULSE 71; RESP 17; TEMP 96.5; O2SAT 98
[2017-01-29] MEDS: NAPROXEN 375 MG TAB PO SCH ×3 (06:38→22:00)
[2017-01-29] MEDS: INSULIN ASPART SUPPLEMENTAL SCALE SQ SCH ×4 (06:42→22:12)
[2017-01-29] MEDS: PRAVASTATIN SOD 20 MG TAB PO SCH (08:24)
[2017-01-29] MEDS: CIPROFLOXACIN 500 MG TAB PO SCH (08:24)
[2017-01-29] MEDS: CHOLECALCIFEROL (VIT D3) 1000 UNIT TAB PO SCH (08:24)
[2017-01-29] MEDS: glyBURIDE 5 MG TAB PO SCH (08:24)
[2017-01-29] MEDS: metFORMIN HCL 500 MG TAB PO SCH ×2 (08:24→17:51)
[2017-01-29] MEDS: GABAPENTIN 300 MG CAP PO SCH ×3 (08:24→17:51)
[2017-01-29] MEDS: ARIPiprazole 10 MG TAB PO SCH (08:25)
[2017-01-29] MEDS: CARVEDILOL 12.5 MG TAB PO SCH ×2 (08:25→21:00)
[2017-01-29] MEDS: LISINOPRIL 20 MG TAB PO SCH (08:25)
[2017-01-29] MEDS ORDERED: amLODIPine BESYLATE 5 MG TAB PO SCH (09:00)
[2017-01-29 09:10] VITALS: BP 162/102
[2017-01-29 11:17] VITALS: BP 134/88
[2017-01-29] MEDS ORDERED: cloNIDine HCL 0.1 MG TAB PO ONE (12:00)
[2017-01-29] MEDS ORDERED: amLODIPine BESYLATE 5 MG TAB PO ONE (12:00)
--- NOTE | 2017-01-29 14:37 | HHI.PR ---
Subjective Remarks Follow-up on patient with hypertension, diabetes, schizophrenia, obesity, dementia, hydrocephalus, fatty liver, uropathy and kidney stones. Patient seen and examined today. Patient denies any acute medical complaints today. Denies any pain or discomfort. Denies any chest pain, palpitations or SOB. No N/V or abdominal pain. Objective Vitals Vital Signs Date Time Temp Pulse Resp B/P Pulse Ox O2 Delivery O2 Flow Rate FiO2 01/29/17 11:17 134/88 01/29/17 09:10 162/102 01/29/17 05:53 96.5 71 17 185/89 98 01/28/17 17:01 67 16 167/90 95 I/O 01/28/17 01/28/17 01/28/17 01/29/17 01/29/17 01/29/17 07:00 15:00 23:00 07:00 15:00 23:00 Intake Total 1440 ml 2160 ml 120 ml 720 ml Balance 1440 ml 2160 ml 120 ml 720 ml Intake Oral 1440 ml 2160 ml 120 ml 720 ml # Voids 1 1 3 2 Result Diagram: 01/23/17 2111 01/25/17 0746 Imaging Last Impressions Liver Ultrasound 01/25/17 0000 Signed Impressions: Service Date/Time: Wednesday, January 25, 2017 08:14 - CONCLUSION: 1. Incidental note of nonspecific trace right perinephric fluid. Right kidney is otherwise normal in appearance. 2. Diffusely increased hepatic echogenicity may reflect mild hepatic steatosis. 3. Otherwise, unremarkable ultrasound examination of the right upper quadrant. Scar Reinoso MD Head CT 01/23/17 0000 Signed Impressions: Service Date/Time: Monday, January 23, 2017 21:41 - CONCLUSION: 1. Moderate periventricular and subcortical white matter small vessel ischemic changes bilaterally. 2. Diffuse cerebral atrophy. 3. No acute infarct, acute hemorrhage, mass effect or extra-axial fluid collections. Suhas Patino MD Chest X-Ray 01/23/17 0000 Signed Impressions: Service Date/Time: Monday, January 23, 2017 22:22 - CONCLUSION: 1. Bibasilar streakiness consistent with atelectasis and/or mild infiltrates. Clinical correlation is recommended. Suhas Patino MD Objective Remarks GENERAL: This is an obese, well-developed patient, in no apparent distress. Awake and alert. Sitting up in bedside chair. SKIN: Warm and dry. HEAD: Atraumatic normocephalic. EYES: EOMI. No scleral icterus. No injection or drainage. CARDIOVASCULAR: Regular rate and rhythm without murmurs, gallops, or rubs. RESPIRATORY: Diminished breath sounds. No wheezes, rales, or rhonchi. GASTROINTESTINAL: Abdomen soft, non-tender, rounded, obese. Bowel sounds present but distant. MUSCULOSKELETAL: Extremities without clubbing, cyanosis, or edema. Right foot inversion. Ambulates with walker use. (+)Tinel's bilaterally. Slightly weak driver/sales workers strength on the right. NEUROLOGICAL: Awake and alert. Oriented to place, person. Forgetful. Motor and sensory grossly within normal limits. Normal speech. Procedures none Medications and IVs Current Medications Medications (Trade) Dose Ordered Sig/Luis Miguel Route Start Time Stop Time Status Last Admin (NS Flush) 2 ml UNSCH PRN IVF 01/23/17 21:00 (Tylenol) 650 mg Q4H PRN PO 01/24/17 11:30 01/26/17 20:00 (Milk Of Magnesia Liq) 30 ml DAILY PRN PO 01/24/17 11:30 (Mag-Al Plus Susp Liq) 30 ml Q6H PRN PO 01/24/17 11:30 (D50w (Vial) Inj) 50 ml UNSCH PRN IV 01/24/17 16:00 (Glucagon Inj) 1 mg UNSCH PRN OTHER 01/24/17 16:00 (Catapres) 0.1 mg Q6H PRN PO 01/24/17 16:00 01/28/17 04:59 (Coreg) 25 mg BID PO 01/24/17 21:00 01/29/17 08:25 (Prinivil) 20 mg DAILY PO 01/26/17 09:00 01/29/17 08:25 (Glucophage) 500 mg BIDPC PO 01/25/17 10:15 01/29/17 08:24 (Ativan) 0.5 mg Q8H PRN PO 01/25/17 15:00 (Ativan Inj) 0.5 mg Q8H PRN IM 01/25/17 15:00 (Benadryl) 25 mg Q6H PRN PO 01/25/17 15:00 (Benadryl Inj) 25 mg Q6H PRN IM 01/25/17 15:00 (Melatonin) 5 mg HS PRN PO 01/25/17 15:00 01/28/17 21:06 (Neurontin) 300 mg TID PO 01/26/17 13:00 01/29/17 12:45 (Diabeta) 5 mg DAILYAC PO 01/27/17 08:00 01/29/17 08:24 (Pravachol) 20 mg DAILY PO 01/26/17 11:00 01/29/17 08:24 (Cipro) 500 mg Q12HR PO 01/26/17 21:00 01/29/17 20:59 01/29/17 08:24 (Vitamin D3) 1,000 units DAILY PO 01/28/17 09:00 01/29/17 08:24 (Abilify) 20 mg DAILY PO 01/29/17 09:00 01/29/17 08:25 (Naprosyn) 375 mg Q8HR PO 01/28/17 15:30 01/30/17 15:29 01/29/17 12:45 (Norvasc) 10 mg DAILY PO 01/30/17 09:00 A/P Problem List: (1) Hypertension ICD Code: I10 Status: Acute (2) DM2 (diabetes mellitus, type 2) ICD Code: E11.9 Status: Acute Assessment and Plan Patient is a 72-year-old female with primary medical history of hypertension, diabetes, schizophrenia, obesity, dementia, hydrocephalus, fatty liver, uropathy, kidney stones who came into the hospital as a Lea act for psychiatric evaluation. According to review of records, patient has been noncompliant with her medications. She is now admitted to inpatient psychiatry unit for further evaluation. Consulted for medical management. Schizophrenia - managed by psychiatry team Hypertension, accelerated - Noncompliant with medications from home. UA showed leaking protein, most probably uncontrolled. - Continue on carvedilol and lisinopril. - BP improved with addition of Norvasc. - Continue clonidine when necessary. - Continue to monitor BP and adjust treatment as indicated. DM 2 - Hemoglobin A1c - 10.6 - Continue home insulin. However given the patient's associated schizophrenia, probably not the best idea to keep the patient on insulin, especially if she doesn't have someone that will take care of her. - Continue on Metformin and Glyburide - Also after the patient takes metformin for a week and there are no significant GI adverse effects, would increase metformin dose to 1000 by mouth twice a day. - Continue to monitor Accu-Cheks and continue to cover. Elevated blood sugars with SSI with insulin NovoLog. - Good control at present with a.m. blood sugar at 129. Questionable hydrocephalus - Patient had poor balance, needing walker with ambulation - Complains of forgetfulness and numbness in her hand - CT of the head showed moderate periventricular and subcortical white matter small vessel ischemic changes bilaterally. Diffuse cerebral atrophy. No acute infarct or hemorrhage, mass effect or extra-axial fluid collections, however does not make detection of signs concurrent with hydrocephalus. - Patient evaluated by PT - able to ambulate 200 feet with a rolling walker with no loss of balance and good lower extremity strength. Transaminitis, elevated liver enzymes - elevated enzymes likely secondary to hepatic steatosis as observed on ultrasound. - Trend liver enzymes - trending down AST 43 --> 41, ALT 67 --> 55 - Hepatitis profile negative. UTI - UCX positive for Enterococcus Faecalis - started on Cipro, complete course x 3 days Vitamin D deficiency - Continue oral supplementation - Will need to have level rechecked by PCP as outpatient Suspect CTS bilaterally - trial of splints for nighttime use not beneficial - may need EMG study as outpatient - Recommend follow-up as outpatient with PCP for further evaluation - Trial of Naproxen DVT prop ambulatory Discussed with nursing staff, patient and Dr. Diaz Problem Qualifiers (1) Hypertension: Qualified Code: I10 - Essential hypertension Vane Payne Jan 29, 2017 14:37
[2017-01-29 18:36] VITALS: BP 143/89; PULSE 89; RESP 19; TEMP 98.1; O2SAT 97
--- NOTE | 2017-01-29 18:38 | HHI.PYPN ---
Subjective Remarks Patient seen and examined with nurseCastro. Chart reviewed. Case discussed with nursing staff. On my examination today, the patient continues to complain of vague auditory hallucinations. She seems to say that this includes her boyfriend who is "in my head." She tells me that her boyfriend is an [employer] impersonator and has a beautiful voice. She endorses vague suicidal ideation with no reported urge to hurt herself on the inpatient psychiatric unit. Affect does not seem at all depressed and in fact seems fairly jovial and euthymic. Denies side effects from medications but isn't sure they're helping very much. No new physical complaints. Review of Systems ROS Limitations: Psychotic, Poor Historian Except as stated in HPI: all other systems reviewed are Neg Objective Alert: Yes [place]: Person (ox4), Place, Date Mood: Calm Affect: Euthymic Memory Intact: Comment (Not formally assessed) Hallucinations: Auditory (ongoing, BF) Delusions: Yes Delusion Type: Paranoid Suicidal: Ideation (Vague SI.) Homicidal: Ideation (No HI) Insight/Judgment Poor Remarks No motor abnormalities noted. Thought process somewhat circumstantial. Speech a little bit rambling. Grooming and hygiene fair. Labs Date/Time Procedure Status Source Growth 01/24/17 22:25 Urine Culture - Final Complete Urine Random Urine Enterococcus Faecalis Labs reviewed. Vitals/IOs Vital Signs Date Time Temp Pulse Resp B/P Pulse Ox O2 Delivery O2 Flow Rate FiO2 01/29/17 11:17 134/88 01/29/17 05:53 96.5 71 17 98 Intake and Output 01/28/17 01/28/17 01/29/17 08:00 16:00 00:00 Intake Total 1440 ml 2160 ml Balance 1440 ml 2160 ml Assessment & Plan Problem List: (1) Paranoid schizophrenia ICD Code: F20.0 Assessment & Plan Continue Abilify 20 mg daily for management of psychosis; patient just received her first dose of this today. To consider further titration of this agent versus switching to a different agent as she does not seem to be deriving very much therapeutic benefit from it today. Continue to monitor on the inpatient unit. Hospitalist input noted and appreciated. Continue other medications and care as ordered. Justification for Cont. Inpt. Impairment in reality construction. High risk for decompensation in a less restrictive environment. Discharge Planning Pending psychiatric stabilization. Request HC Surrog/Guard Advoc?: Yes Twin Osborn MD Jan 29, 2017 18:38
[2017-01-30] MEDS: NAPROXEN 375 MG TAB PO SCH ×2 (06:00→13:29)
[2017-01-30] MEDS: INSULIN ASPART SUPPLEMENTAL SCALE SQ SCH ×4 (06:05→20:52)
[2017-01-30 06:18] VITALS: BP 150/70; PULSE 75; RESP 17; TEMP 97.1; O2SAT 96
[2017-01-30] MEDS: ARIPiprazole 10 MG TAB PO SCH (08:43)
[2017-01-30] MEDS: GABAPENTIN 300 MG CAP PO SCH ×3 (08:43→17:16)
[2017-01-30] MEDS: PRAVASTATIN SOD 20 MG TAB PO SCH (08:43)
[2017-01-30] MEDS: glyBURIDE 5 MG TAB PO SCH (08:43)
[2017-01-30] MEDS: CHOLECALCIFEROL (VIT D3) 1000 UNIT TAB PO SCH (08:44)
[2017-01-30] MEDS: LISINOPRIL 20 MG TAB PO SCH (08:44)
[2017-01-30] MEDS: metFORMIN HCL 500 MG TAB PO SCH ×2 (08:44→17:16)
[2017-01-30] MEDS: CARVEDILOL 12.5 MG TAB PO SCH ×2 (08:58→20:54)
--- NOTE | 2017-01-30 14:16 | HHI.PR ---
Subjective Remarks Follow-up on patient with hypertension, diabetes, schizophrenia, obesity, dementia, hydrocephalus, fatty liver, uropathy and kidney stones. Patient seen and examined today. Patient reports she is a little tired today otherwise has no acute medical complaints. Denies any f/c, n/v, SOB, chest pain or abdominal pain. Objective Vitals Vital Signs Date Time Temp Pulse Resp B/P Pulse Ox O2 Delivery O2 Flow Rate FiO2 01/30/17 06:18 97.1 75 17 150/70 96 01/29/17 18:36 98.1 89 19 143/89 97 I/O 01/29/17 01/29/17 01/29/17 01/30/17 01/30/17 01/30/17 07:00 15:00 23:00 07:00 15:00 23:00 Intake Total 120 ml 720 ml Balance 120 ml 720 ml Intake Oral 120 ml 720 ml # Voids 2 Imaging Last Impressions Liver Ultrasound 01/25/17 0000 Signed Impressions: Service Date/Time: Wednesday, January 25, 2017 08:14 - CONCLUSION: 1. Incidental note of nonspecific trace right perinephric fluid. Right kidney is otherwise normal in appearance. 2. Diffusely increased hepatic echogenicity may reflect mild hepatic steatosis. 3. Otherwise, unremarkable ultrasound examination of the right upper quadrant. Scar Reinoso MD Head CT 01/23/17 0000 Signed Impressions: Service Date/Time: Monday, January 23, 2017 21:41 - CONCLUSION: 1. Moderate periventricular and subcortical white matter small vessel ischemic changes bilaterally. 2. Diffuse cerebral atrophy. 3. No acute infarct, acute hemorrhage, mass effect or extra-axial fluid collections. Suhas Patino MD Chest X-Ray 01/23/17 0000 Signed Impressions: Service Date/Time: Monday, January 23, 2017 22:22 - CONCLUSION: 1. Bibasilar streakiness consistent with atelectasis and/or mild infiltrates. Clinical correlation is recommended. Suhas Patino MD Objective Remarks GENERAL: This is an obese, well-developed patient, in no apparent distress. Awake and alert. Ambulating in hallway with walker. SKIN: Warm and dry. HEAD: Atraumatic normocephalic. EYES: EOMI. No scleral icterus. No injection or drainage. CARDIOVASCULAR: Regular rate and rhythm without murmurs, gallops, or rubs. RESPIRATORY: Diminished breath sounds. No wheezes, rales, or rhonchi. GASTROINTESTINAL: Abdomen soft, non-tender, rounded, obese. Bowel sounds present but distant. MUSCULOSKELETAL: Extremities without clubbing, cyanosis, or edema. Right foot inversion. Ambulates with walker use. NEUROLOGICAL: Awake and alert. Oriented to place, person. Forgetful. Motor and sensory grossly within normal limits. Normal speech. Procedures none Medications and IVs Current Medications Medications (Trade) Dose Ordered Sig/Luis Miguel Route Start Time Stop Time Status Last Admin (NS Flush) 2 ml UNSCH PRN IVF 01/23/17 21:00 (Tylenol) 650 mg Q4H PRN PO 01/24/17 11:30 01/26/17 20:00 (Milk Of Magnesia Liq) 30 ml DAILY PRN PO 01/24/17 11:30 (Mag-Al Plus Susp Liq) 30 ml Q6H PRN PO 01/24/17 11:30 (D50w (Vial) Inj) 50 ml UNSCH PRN IV 01/24/17 16:00 (Glucagon Inj) 1 mg UNSCH PRN OTHER 01/24/17 16:00 (Catapres) 0.1 mg Q6H PRN PO 01/24/17 16:00 01/28/17 04:59 (Coreg) 25 mg BID PO 01/24/17 21:00 01/30/17 08:58 (Prinivil) 20 mg DAILY PO 01/26/17 09:00 01/30/17 08:44 (Ativan) 0.5 mg Q8H PRN PO 01/25/17 15:00 (Ativan Inj) 0.5 mg Q8H PRN IM 01/25/17 15:00 (Benadryl) 25 mg Q6H PRN PO 01/25/17 15:00 (Benadryl Inj) 25 mg Q6H PRN IM 01/25/17 15:00 (Melatonin) 5 mg HS PRN PO 01/25/17 15:00 01/28/17 21:06 (Neurontin) 300 mg TID PO 01/26/17 13:00 01/30/17 12:25 (Pravachol) 20 mg DAILY PO 01/26/17 11:00 01/30/17 08:43 (Vitamin D3) 1,000 units DAILY PO 01/28/17 09:00 01/30/17 08:44 (Abilify) 20 mg DAILY PO 01/29/17 09:00 01/30/17 08:43 (Naprosyn) 375 mg Q8HR PO 01/28/17 15:30 01/30/17 15:29 01/30/17 13:29 (Norvasc) 10 mg DAILY PO 01/30/17 09:00 01/30/17 08:43 (Diabeta) 2.5 mg DAILYAC PO 01/31/17 08:00 (Glucophage) 1,000 mg BIDPC PO 01/30/17 18:00 A/P Problem List: (1) Hypertension ICD Code: I10 Status: Acute (2) DM2 (diabetes mellitus, type 2) ICD Code: E11.9 Status: Acute Assessment and Plan Patient is a 72-year-old female with primary medical history of hypertension, diabetes, schizophrenia, obesity, dementia, hydrocephalus, fatty liver, uropathy, kidney stones who came into the hospital as a [place] act for psychiatric evaluation. According to review of records, patient has been noncompliant with her medications. She is now admitted to inpatient psychiatry unit for further evaluation. Consulted for medical management. Schizophrenia - managed by psychiatry team Hypertension, accelerated - Noncompliant with medications from home. UA showed leaking protein, most probably uncontrolled. - BP improved. Continue on carvedilol, Norvasc and lisinopril. - Continue clonidine when necessary. - Continue to monitor BP and adjust treatment as indicated. DM 2 - Hemoglobin A1c - 10.6 - Continue home insulin. However given the patient's associated schizophrenia, probably not the best idea to keep the patient on insulin, especially if she doesn't have someone that will take care of her. - Continue on Metformin - increase dose to 1000mg BID. Monitor for GI tolerance with increased dose. - Given age, will decrease dose of Glyburide to prevent hypoglycemic episodes - Continue to monitor Accu-Cheks and continue to cover. Elevated blood sugars with SSI with insulin NovoLog. - Good control at present with a.m. blood sugar at 144. Questionable hydrocephalus - Patient had poor balance, needing walker with ambulation - Complains of forgetfulness and numbness in her hand - CT of the head showed moderate periventricular and subcortical white matter small vessel ischemic changes bilaterally. Diffuse cerebral atrophy. No acute infarct or hemorrhage, mass effect or extra-axial fluid collections, however does not make detection of signs concurrent with hydrocephalus. - Patient evaluated by PT - able to ambulate 200 feet with a rolling walker with no loss of balance and good lower extremity strength. Transaminitis, elevated liver enzymes - elevated enzymes likely secondary to hepatic steatosis as observed on ultrasound. - Trend liver enzymes - trending down AST 43 --> 41, ALT 67 --> 55 - Hepatitis profile negative. - monitor LFTs UTI - UCX positive for Enterococcus Faecalis - started on Cipro, complete course x 7 days Vitamin D deficiency - Continue oral supplementation - Will need to have level rechecked by PCP as outpatient Suspect CTS bilaterally - trial of splints for nighttime use not beneficial - may need EMG study as outpatient - Recommend follow-up as outpatient with PCP for further evaluation - Trial of Naproxen DVT prop ambulatory Discussed with nursing staff, patient and Dr. Diaz Problem Qualifiers (1) Hypertension: Qualified Code: I10 - Essential hypertension Vane Payne Jan 30, 2017 14:16
[2017-01-30] MEDS: CIPROFLOXACIN 500 MG TAB PO SCH ×2 (16:43→20:54)
--- NOTE | 2017-01-30 16:51 | HHI.PYPN ---
Subjective Remarks Pt seen and discussed with staff. She has been cooperative with care and is tolerating medication without side effects. Staff report that pt has not been voicing delusions today and seems less paranoid. Mood is irritable. Insight into illness is poor. Objective Alert: Yes [place]: Person (ox4), Place, Date Mood: Other (irritable) Affect: Other Memory Intact: Comment (Not formally assessed) Hallucinations: Auditory (appears internally stimulated) Delusions: Yes Delusion Type: Paranoid (mild) Suicidal: Ideation (Vague SI.) Homicidal: Ideation (No HI) Insight/Judgment poor Vitals/IOs Vital Signs Date Time Temp Pulse Resp B/P Pulse Ox O2 Delivery O2 Flow Rate FiO2 01/30/17 06:18 97.1 75 17 150/70 96 Intake and Output 01/29/17 01/29/17 01/30/17 08:00 16:00 00:00 Intake Total 480 ml 360 ml Balance 480 ml 360 ml Assessment & Plan Problem List: (1) Paranoid schizophrenia ICD Code: F20.0 Assessment & Plan Continue current tx plan. Pt is improving Estimated LOS: days Justification for Cont. Inpt. decompensation at lower level of care Request HC Surrog/Guard Advoc?: Yes Marina Mabry MD Jan 30, 2017 16:51
[2017-01-30 17:05] VITALS: BP 157/75
[2017-01-30 18:00] VITALS: PULSE 85; RESP 16; TEMP 97.2; O2SAT 97
[2017-01-30 19:30] LABS: INDIRECT BILIRUBIN 0.1 MG/DL (0.0-0.8); TOTAL BILIRUBIN ADULT 0.2 MG/DL (0.2-1.0)
[2017-01-31 06:00] VITALS: BP_SYST 158; BP_SYST 186; BP_DIAS 82; BP_DIAS 94; PULSE 77; RESP 18; TEMP 97.4; O2SAT 95
[2017-01-31] MEDS: INSULIN ASPART SUPPLEMENTAL SCALE SQ SCH ×4 (06:31→20:36)
[2017-01-31] MEDS ORDERED: glyBURIDE 5 MG TAB PO SCH (08:00)
[2017-01-31] MEDS: CIPROFLOXACIN 500 MG TAB PO SCH ×2 (09:07→20:37)
[2017-01-31] MEDS: PRAVASTATIN SOD 20 MG TAB PO SCH (09:07)
[2017-01-31] MEDS: CARVEDILOL 12.5 MG TAB PO SCH ×2 (09:07→20:37)
[2017-01-31] MEDS: metFORMIN HCL 500 MG TAB PO SCH ×2 (09:07→17:30)
[2017-01-31] MEDS: CHOLECALCIFEROL (VIT D3) 1000 UNIT TAB PO SCH (09:07)
[2017-01-31] MEDS: ARIPiprazole 10 MG TAB PO SCH (09:07)
[2017-01-31] MEDS: LISINOPRIL 20 MG TAB PO SCH (09:07)
[2017-01-31] MEDS: GABAPENTIN 300 MG CAP PO SCH ×3 (09:08→17:30)
[2017-01-31] MEDS: ACETAMINOPHEN 325 MG TAB PO PRN ×3 (09:08→22:49)
--- NOTE | 2017-01-31 12:12 | HHI.PYPN ---
Subjective Remarks Patient seen in [place] with nurse Yoko, patient calm pleasant with me acknowledges some intermittent both auditory and visual hallucinations. That hallucinations are multiple year in their length with multiple voices. Being friendly to threatening. Patient is also somewhat vague about suicidality stating she has suicidal thoughts, but she not act of them causes against God's law. For now continue treatment Review of Systems Except as stated in HPI: all other systems reviewed are Neg Objective Alert: Yes [place]: Person (ox4), Place, Date Mood: Other (irritable) Affect: Other Memory Intact: Comment (Not formally assessed) Hallucinations: Auditory (appears internally stimulated), Visual (vague noticed outside her window) Delusions: Yes Delusion Type: Paranoid (mild) Suicidal: Ideation (Vague SI.) Homicidal: Ideation (No HI) Insight/Judgment Poor Labs Test 01/30/17 18:57 Total Bilirubin 0.2 MG/DL Direct Bilirubin 0.1 MG/DL Indirect Bilirubin 0.1 MG/DL Aspartate Amino Transf 50 U/L (AST/SGOT) Alanine Aminotransferase 68 U/L (ALT/SGPT) Alkaline Phosphatase 89 U/L Total Protein 7.2 GM/DL Albumin 3.2 GM/DL Vitals/IOs Vital Signs Date Time Temp Pulse Resp B/P Pulse Ox O2 Delivery O2 Flow Rate FiO2 01/31/17 06:00 97.4 77 18 186/94 95 158/82 Intake and Output 01/30/17 01/30/17 01/31/17 08:00 16:00 00:00 Intake Total 480 ml Balance 480 ml Assessment & Plan Problem List: (1) Paranoid schizophrenia ICD Code: F20.0 Assessment & Plan Estimated LOS: days patient continue psychotic, though overall no behavioral problems, compliant medications. For now continue treatment Justification for Cont. Inpt. At this time patient will decompensate if placed in a lower level of care Discharge Planning To be determined Request HC Surrog/Guard Advoc?: Yes Rolo Bai MD Jan 31, 2017 12:12
[2017-01-31] MEDS ORDERED: LISINOPRIL 10 MG TAB PO ONE (13:30)
--- NOTE | 2017-01-31 15:50 | PD.TTN ---
Present for Treatment Team Treatment Team Staff: Provider (Dr Bai), Nurse (Macarena), Psych Therapist (Kelly Yousif), Occupational Therapist (Group Specialist Farrah Cullen) Patient Problems 1. Discharge planning 2. Medication compliance 3. Knowledge deficit 4. Lack of coping skills Progress Toward Goals Provider Input: Provider has not met with patient yet but has reviewed her record Nurse Input: Pt is delusional and somewhat distrusting and appears to have issues with her children and her living situation Psych Therapist Input: Pt is in room and guarded this morning and appears hoping to leave soon, but is having some symptoms or delusions Occupational Therapist Input: has just came over the weekend and no attendance yet Kelly Yousif [facility] Jan 31, 2017 15:50
[2017-01-31 16:00] VITALS: BP 155/69; PULSE 80; RESP 16; TEMP 97.6; O2SAT 98
[2017-02-01 05:25] VITALS: BP 128/60; PULSE 73; RESP 18; TEMP 98.1; O2SAT 92
[2017-02-01] MEDS: INSULIN ASPART SUPPLEMENTAL SCALE SQ SCH ×4 (06:24→20:44)
[2017-02-01] MEDS: ACETAMINOPHEN 325 MG TAB PO PRN ×3 (08:44→17:43)
[2017-02-01] MEDS: ARIPiprazole 10 MG TAB PO SCH (08:44)
[2017-02-01] MEDS: GABAPENTIN 300 MG CAP PO SCH ×3 (08:44→17:17)
[2017-02-01] MEDS: CARVEDILOL 12.5 MG TAB PO SCH ×2 (08:45→20:42)
[2017-02-01] MEDS: CHOLECALCIFEROL (VIT D3) 1000 UNIT TAB PO SCH (08:45)
[2017-02-01] MEDS: CIPROFLOXACIN 500 MG TAB PO SCH ×2 (08:45→20:42)
[2017-02-01] MEDS: PRAVASTATIN SOD 20 MG TAB PO SCH (08:45)
[2017-02-01] MEDS: LISINOPRIL 10 MG TAB PO SCH (08:45)
[2017-02-01] MEDS: metFORMIN HCL 500 MG TAB PO SCH ×2 (08:45→17:17)
--- NOTE | 2017-02-01 10:34 | HHI.PYPN ---
Subjective Remarks Patient seen in day room, floor staff, chart review, patient compliant medications. Patient continues to voice some intermittent auditory and visual hallucinations with this time she denies suicidality homicidality. Will increase a.m. Abilify to 25 mg Review of Systems Except as stated in HPI: all other systems reviewed are Neg Objective Alert: Yes [place]: Person (ox4), Place, Date Mood: Other (irritable) Affect: Other Memory Intact: Comment (Not formally assessed) Hallucinations: Auditory (appears internally stimulated), Visual (vague noticed outside her window) Delusions: Yes Delusion Type: Paranoid (mild) Suicidal: Ideation (Vague SI.) Homicidal: Ideation (No HI) Insight/Judgment Poor Vitals/IOs Vital Signs Date Time Temp Pulse Resp B/P Pulse Ox O2 Delivery O2 Flow Rate FiO2 02/01/17 05:25 98.1 73 18 128/60 92 Assessment & Plan Problem List: (1) Paranoid schizophrenia ICD Code: F20.0 Assessment & Plan Estimated LOS: days patient continue psychotic and delusional, isolating, compliant medications. Is pleasant with me Justification for Cont. Inpt. This time patient will decompensate the placed in a lower level of care Discharge Planning To be determined Request HC Surrog/Guard Advoc?: Yes Rolo Bai MD Feb 01, 2017 10:34
[2017-02-01] MEDS ORDERED: PILL SPLITTER OTHER PRN (10:45)
[2017-02-01 16:12] VITALS: BP 128/60; PULSE 73; RESP 18; TEMP 98.1; O2SAT 92
[2017-02-02 05:25] VITALS: BP 155/72; PULSE 74; RESP 18; TEMP 97.3; O2SAT 96
[2017-02-02] MEDS: ACETAMINOPHEN 325 MG TAB PO PRN (06:03)
[2017-02-02] MEDS: INSULIN ASPART SUPPLEMENTAL SCALE SQ SCH ×4 (06:21→21:00)
[2017-02-02] MEDS: CARVEDILOL 12.5 MG TAB PO SCH ×2 (09:00→21:19)
[2017-02-02] MEDS: PRAVASTATIN SOD 20 MG TAB PO SCH (09:06)
[2017-02-02] MEDS: metFORMIN HCL 500 MG TAB PO SCH ×2 (09:07→17:56)
[2017-02-02] MEDS: GABAPENTIN 300 MG CAP PO SCH ×3 (09:07→17:56)
[2017-02-02] MEDS: LISINOPRIL 10 MG TAB PO SCH (09:07)
[2017-02-02] MEDS: CIPROFLOXACIN 500 MG TAB PO SCH ×2 (09:07→21:19)
[2017-02-02] MEDS: CHOLECALCIFEROL (VIT D3) 1000 UNIT TAB PO SCH (09:09)
[2017-02-02] MEDS: ARIPiprazole 10 MG TAB PO SCH (09:09)
--- NOTE | 2017-02-02 13:38 | HHI.PR ---
Addendum to Inpatient Note Additional Information Chart reviewed. Hypertension stable. Continue on present antihypertensive regimen. Blood sugars well controlled. Will need to follow up with PCP as an outpatient to reassess liver function tests and hemoglobin A1c/diabetic regimen. Patient medically stable. Will sign off at this time. Please reconsult if needed. Discussed with nursing staff and Vane Buckley Feb 02, 2017 13:38
--- NOTE | 2017-02-02 14:08 | HHI.PYPN ---
Subjective Remarks Patient seen in [place] with floor staff, chart review, patient compliant medications. Patient continues calm cooperative and pleasant with me. States she is attempting to work with the family related to placement issues. For now continue treatment Review of Systems Except as stated in HPI: all other systems reviewed are Neg Objective Alert: Yes [place]: Person (ox4), Place, Date Mood: Other (irritable) Affect: Other Memory Intact: Comment (Not formally assessed) Hallucinations: Auditory (appears internally stimulated), Visual (vague noticed outside her window) Delusions: Yes Delusion Type: Paranoid (mild) Suicidal: Ideation (Vague SI.) Homicidal: Ideation (No HI) Insight/Judgment Poor Vitals/IOs Vital Signs Date Time Temp Pulse Resp B/P Pulse Ox O2 Delivery O2 Flow Rate FiO2 02/02/17 05:25 97.3 74 18 155/72 96 Intake and Output 02/01/17 02/01/17 02/02/17 08:00 16:00 00:00 Intake Total 1360 ml Balance 1360 ml Assessment & Plan Problem List: (1) Paranoid schizophrenia ICD Code: F20.0 Assessment & Plan Estimated LOS: days patient psychosis is resolving, his calm cooperative with us. For now continue treatment Justification for Cont. Inpt. If this time patient decompensate if placed in a lower level of care Discharge Planning To be determined Request HC Surrog/Guard Advoc?: Yes Rolo Bai MD Feb 02, 2017 14:08
[2017-02-02] MEDS: MELATONIN 5 MG TAB PO PRN (21:19)
[2017-02-02 21:53] VITALS: BP 158/85; PULSE 82; RESP 18; TEMP 97.2; O2SAT 93
[2017-02-03 06:05] VITALS: BP 124/65; PULSE 76; RESP 16; TEMP 97.6; O2SAT 94
[2017-02-03] MEDS: INSULIN ASPART SUPPLEMENTAL SCALE SQ SCH ×4 (07:00→21:00)
[2017-02-03] MEDS: CIPROFLOXACIN 500 MG TAB PO SCH ×2 (08:59→20:51)
[2017-02-03] MEDS: ARIPiprazole 10 MG TAB PO SCH (08:59)
[2017-02-03] MEDS: CARVEDILOL 12.5 MG TAB PO SCH ×2 (09:00→20:51)
[2017-02-03] MEDS: LISINOPRIL 10 MG TAB PO SCH (09:03)
[2017-02-03] MEDS: CHOLECALCIFEROL (VIT D3) 1000 UNIT TAB PO SCH (09:04)
[2017-02-03] MEDS: PRAVASTATIN SOD 20 MG TAB PO SCH (09:04)
[2017-02-03] MEDS: GABAPENTIN 300 MG CAP PO SCH ×3 (09:04→17:23)
[2017-02-03] MEDS: metFORMIN HCL 500 MG TAB PO SCH ×2 (09:04→17:23)
[2017-02-03] MEDS: ACETAMINOPHEN 325 MG TAB PO PRN (09:05)
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
--- NOTE | 2017-02-03 13:27 | HHI.PYPN ---
Subjective Remarks Patient seen in her room with nurse Macarena, chart reviewed, patient compliant medications. Patient calm pleasant though somewhat grandiose today talk about her past relationship with various men. She does acknowledge some vague continuing auditory hallucinations. Though she denies suicidality. For now continue treatment Review of Systems Except as stated in HPI: all other systems reviewed are Neg Objective Alert: Yes [place]: Person (ox4), Place, Date Mood: Other (irritable) Affect: Other Memory Intact: Comment (Not formally assessed) Hallucinations: Auditory (appears internally stimulated), Visual (vague noticed outside her window) Delusions: Yes Delusion Type: Paranoid (mild) Suicidal: Ideation (Vague SI.) Homicidal: Ideation (No HI) Insight/Judgment Poor Vitals/IOs Vital Signs Date Time Temp Pulse Resp B/P Pulse Ox O2 Delivery O2 Flow Rate FiO2 02/03/17 06:05 97.6 76 16 124/65 94 Intake and Output 02/02/17 02/02/17 02/03/17 08:00 16:00 00:00 Intake Total 360 ml Balance 360 ml Assessment & Plan Problem List: (1) Paranoid schizophrenia ICD Code: F20.0 Assessment & Plan Estimated LOS: days patient continues somewhat delusional, though no behavior problems, compliant medication for now continue treatment Justification for Cont. Inpt. At this time patient will decompensate with placed in a lower level of care Discharge Planning To be determined Request HC Surrog/Guard Advoc?: Yes Rolo Bai MD Feb 03, 2017 13:27
[2017-02-03 19:00] VITALS: BP 130/60; PULSE 73; RESP 16; TEMP 97.9; O2SAT 96
[2017-02-04 05:26] VITALS: BP 145/73; PULSE 69; RESP 16; TEMP 98.5; O2SAT 93
[2017-02-04] MEDS: INSULIN ASPART SUPPLEMENTAL SCALE SQ SCH ×4 (05:52→20:05)
[2017-02-04] MEDS: ACETAMINOPHEN 325 MG TAB PO PRN ×2 (08:54→15:20)
[2017-02-04] MEDS: CHOLECALCIFEROL (VIT D3) 1000 UNIT TAB PO SCH (08:59)
[2017-02-04] MEDS: GABAPENTIN 300 MG CAP PO SCH ×4 (08:59→20:28)
[2017-02-04] MEDS: CARVEDILOL 12.5 MG TAB PO SCH ×2 (08:59→20:28)
[2017-02-04] MEDS: ARIPiprazole 10 MG TAB PO SCH (08:59)
[2017-02-04] MEDS: CIPROFLOXACIN 500 MG TAB PO SCH (08:59)
[2017-02-04] MEDS: metFORMIN HCL 500 MG TAB PO SCH ×2 (09:00→18:12)
[2017-02-04] MEDS: LISINOPRIL 10 MG TAB PO SCH (09:03)
[2017-02-04] MEDS: PRAVASTATIN SOD 20 MG TAB PO SCH (09:03)
--- NOTE | 2017-02-04 12:27 | HHI.PYPN ---
Subjective Remarks Patient seen in day room with nurse Jocelyn, and counselor Kelly, patient's somewhat more animated at this time with increased eye contact speech is somewhat more rapid with some mild pressure. There is some mild grandiosity. Now stating she has some confusion about where she wants to be placed. Otherwise patient compliant medications no significant behavioral problem Review of Systems Except as stated in HPI: all other systems reviewed are Neg Objective Alert: Yes [place]: Person (ox4), Place, Date Mood: Other (irritable) Affect: Other Memory Intact: Comment (Not formally assessed) Hallucinations: Auditory (appears internally stimulated), Visual (vague noticed outside her window) Delusions: Yes Delusion Type: Paranoid (mild) Suicidal: Ideation (Vague SI.) Homicidal: Ideation (No HI) Insight/Judgment Poor Vitals/IOs Vital Signs Date Time Temp Pulse Resp B/P Pulse Ox O2 Delivery O2 Flow Rate FiO2 02/04/17 05:26 98.5 69 16 145/73 93 Assessment & Plan Problem List: (1) Paranoid schizophrenia ICD Code: F20.0 Assessment & Plan Estimated LOS: days patient continues psychotic though somewhat softer. Compliant medication. No significant behavioral problems. Justification for Cont. Inpt. At this time patient will decompensate the placed in a lower level of care Discharge Planning To be determined Request HC Surrog/Guard Advoc?: Yes Rolo Bai MD Feb 04, 2017 12:27
[2017-02-04 18:18] VITALS: BP 143/65; PULSE 83; RESP 18; TEMP 98.7; O2SAT 97
[2017-02-05 05:36] VITALS: BP 125/61; PULSE 70; RESP 18; TEMP 97.1; O2SAT 95
[2017-02-05] MEDS: INSULIN ASPART SUPPLEMENTAL SCALE SQ SCH ×4 (05:43→20:38)
[2017-02-05] MEDS: ACETAMINOPHEN 325 MG TAB PO PRN (05:46)
[2017-02-05] MEDS: CHOLECALCIFEROL (VIT D3) 1000 UNIT TAB PO SCH (09:20)
[2017-02-05] MEDS: LISINOPRIL 10 MG TAB PO SCH (09:21)
[2017-02-05] MEDS: ARIPiprazole 10 MG TAB PO SCH (09:21)
[2017-02-05] MEDS: metFORMIN HCL 500 MG TAB PO SCH ×2 (09:21→18:44)
[2017-02-05] MEDS: CARVEDILOL 12.5 MG TAB PO SCH ×2 (09:22→20:59)
[2017-02-05] MEDS: PRAVASTATIN SOD 20 MG TAB PO SCH (09:22)
[2017-02-05] MEDS: GABAPENTIN 300 MG CAP PO SCH ×3 (09:57→18:44)
--- NOTE | 2017-02-05 15:00 | HHI.PYPN ---
Subjective Remarks Patient was seen and case discussed with nursing. Patient is disorganized and delayed with some thought blocking. She needs to have auditory hallucinations from her boyfriend and believes that her dad still alive. Alert and oriented 2. Some paranoia that her sister wants to rule her life Objective Alert: Yes [place]: Person (ox4), Place, Date Mood: Other (irritable) Affect: Blunted Memory Intact: Comment (Not formally assessed) Hallucinations: Auditory (her boyfriend talking to her), Visual (vague noticed outside her window) Delusions: Yes Delusion Type: Paranoid (concerning her sister) Suicidal: Ideation (Vague SI.) Homicidal: Ideation (No HI) Insight/Judgment Poor Vitals/IOs Vital Signs Date Time Temp Pulse Resp B/P Pulse Ox O2 Delivery O2 Flow Rate FiO2 02/05/17 05:36 97.1 70 18 125/61 95 Intake and Output 02/04/17 02/04/17 02/04/17 07:59 15:59 23:59 Intake Total 360 ml Balance 360 ml Assessment & Plan Problem List: (1) Paranoid schizophrenia ICD Code: F20.0 Assessment & Plan Continue current treatment plan Justification for Cont. Inpt. Patient will decompensate in a less restrictive setting Request HC Surrog/Guard Advoc?: Yes Elio Sinclair DO Feb 05, 2017 15:00
[2017-02-05 18:01] VITALS: BP 152/95; PULSE 76; RESP 17; TEMP 98.9; O2SAT 97
[2017-02-06] MEDS: INSULIN ASPART SUPPLEMENTAL SCALE SQ SCH ×4 (06:05→20:58)
[2017-02-06 06:13] VITALS: BP 165/75; PULSE 65; RESP 16; TEMP 98; O2SAT 94
[2017-02-06] MEDS: GABAPENTIN 300 MG CAP PO SCH ×3 (09:04→18:24)
[2017-02-06] MEDS: LISINOPRIL 10 MG TAB PO SCH (09:05)
[2017-02-06] MEDS: CARVEDILOL 12.5 MG TAB PO SCH ×2 (09:05→20:35)
[2017-02-06] MEDS: metFORMIN HCL 500 MG TAB PO SCH ×2 (09:05→18:24)
[2017-02-06] MEDS: ARIPiprazole 10 MG TAB PO SCH (09:05)
[2017-02-06] MEDS: CHOLECALCIFEROL (VIT D3) 1000 UNIT TAB PO SCH (09:05)
[2017-02-06] MEDS: PRAVASTATIN SOD 20 MG TAB PO SCH (09:05)
--- NOTE | 2017-02-06 13:55 | HHI.PYPN ---
Subjective Remarks Patient was seen and case discussed with nursing. Patient is guarded and not cooperative with interview. She says a light to her yesterday telling her the wrong date. He is irritable with nursing because her protocol of seeing her grandchildren. Would not answer most questions Objective Alert: Yes [place]: Person (ox4), Place, Date Mood: Oppositional Affect: Flat Memory Intact: Comment (Not formally assessed) Hallucinations: Auditory (her boyfriend talking to her), Visual (vague noticed outside her window) Delusions: Yes Delusion Type: Paranoid (concerning her sister) Suicidal: Ideation (Vague SI.) Homicidal: Ideation (No HI) Insight/Judgment Poor Vitals/IOs Vital Signs Date Time Temp Pulse Resp B/P Pulse Ox O2 Delivery O2 Flow Rate FiO2 02/06/17 06:13 98.0 65 16 165/75 94 Assessment & Plan Problem List: (1) Paranoid schizophrenia ICD Code: F20.0 Assessment & Plan Continue current treatment plan Justification for Cont. Inpt. Patient will decompensate in a less restrictive setting Request HC Surrog/Guard Advoc?: Yes Elio Sinclair DO Feb 06, 2017 13:55
[2017-02-06 18:01] VITALS: BP 143/61; PULSE 78; RESP 18; TEMP 98.2; O2SAT 97
[2017-02-07 06:00] VITALS: BP 130/78; PULSE 65; RESP 18; TEMP 98.7; O2SAT 100
[2017-02-07] MEDS: INSULIN ASPART SUPPLEMENTAL SCALE SQ SCH ×4 (06:17→22:51)
[2017-02-07] MEDS: CARVEDILOL 12.5 MG TAB PO SCH ×2 (09:03→21:00)
[2017-02-07] MEDS: ARIPiprazole 10 MG TAB PO SCH (09:04)
[2017-02-07] MEDS: LISINOPRIL 10 MG TAB PO SCH (09:04)
[2017-02-07] MEDS: CHOLECALCIFEROL (VIT D3) 1000 UNIT TAB PO SCH (09:04)
[2017-02-07] MEDS: GABAPENTIN 300 MG CAP PO SCH ×3 (09:04→18:00)
[2017-02-07] MEDS: metFORMIN HCL 500 MG TAB PO SCH ×2 (09:04→18:26)
[2017-02-07] MEDS: PRAVASTATIN SOD 20 MG TAB PO SCH (09:05)
--- NOTE | 2017-02-07 11:50 | HHI.PYPN ---
Subjective Remarks Patient seen in her room with nurse Maximiliano, chart review, patient compliant medication. Patient calm pleasant with me though at times somewhat superficial and silly. However she also is focusing on her sister. She remained psychotic appears to maybe auditory hallucinations of her sister's voice perhaps related to some feelings of thought insertion. Thus her voices persist at this time that seemed somewhat intrusive. Will increase Abilify to 30 mg daily Review of Systems Except as stated in HPI: all other systems reviewed are Neg Objective Alert: Yes [place]: Person (ox4), Place, Date Mood: Oppositional Affect: Flat Memory Intact: Comment (Not formally assessed) Hallucinations: Auditory (her boyfriend talking to her), Visual (vague noticed outside her window) Delusions: Yes Delusion Type: Paranoid (concerning her sister) Suicidal: Ideation (Vague SI.) Homicidal: Ideation (No HI) Insight/Judgment Very poor Vitals/IOs Vital Signs Date Time Temp Pulse Resp B/P Pulse Ox O2 Delivery O2 Flow Rate FiO2 02/07/17 06:00 98.7 65 18 130/78 100 Manual Cuff/Palpation Assessment & Plan Problem List: (1) Paranoid schizophrenia ICD Code: F20.0 Assessment & Plan Estimated LOS: days patient remained psychotic with delusions and increase auditory hallucinations. See medication adjustment above Justification for Cont. Inpt. At this time patient will decompensate placed on the lower level of care Discharge Planning To be determined Request HC Surrog/Guard Advoc?: Yes Rolo Bai MD Feb 07, 2017 11:50
--- NOTE | 2017-02-07 15:09 | PD.TTN ---
Present for Treatment Team Treatment Team Staff: Provider (Dr. Bai), Psych Therapist (Andrew filling in for Kelly), Clinical Specialist, Occupational Therapist (Farrah) Patient Problems 1. Discharge planning 2. Medication compliance 3. Knowledge deficit 4. Lack of coping skills Progress Toward Goals Provider Input: Dr. Bai stated that he wants psych counselor to find pt placement. Nurse Input: Pt presents with a labile mood, including mood swings from calm and pleasant to aggitated. Pt continues to be compliant with medication. Occupational Therapist Input: Pt does not attend group therapy Andrew Smalls Jr, NET MENDER Feb 07, 2017 15:09
[2017-02-07 18:03] VITALS: BP 135/79; PULSE 68; RESP 18; TEMP 98.5; O2SAT 100
[2017-02-08 06:01] VITALS: BP 175/71; PULSE 70; RESP 18; TEMP 98.1; O2SAT 95
[2017-02-08] MEDS: INSULIN ASPART SUPPLEMENTAL SCALE SQ SCH ×4 (06:42→21:38)
[2017-02-08] MEDS: ACETAMINOPHEN 325 MG TAB PO PRN (06:43)
[2017-02-08] MEDS: GABAPENTIN 300 MG CAP PO SCH ×3 (08:35→16:10)
[2017-02-08] MEDS: CARVEDILOL 12.5 MG TAB PO SCH ×2 (08:35→21:00)
[2017-02-08] MEDS: metFORMIN HCL 500 MG TAB PO SCH ×2 (08:35→16:10)
[2017-02-08] MEDS: CHOLECALCIFEROL (VIT D3) 1000 UNIT TAB PO SCH (08:35)
[2017-02-08] MEDS: LISINOPRIL 10 MG TAB PO SCH (08:35)
[2017-02-08] MEDS: ARIPiprazole 30 MG TAB PO SCH (08:35)
[2017-02-08] MEDS: PRAVASTATIN SOD 20 MG TAB PO SCH (08:35)
--- NOTE | 2017-02-08 12:21 | HHI.PYPN ---
Subjective Remarks He should seen in day room with floor staff, patient continues to perseverate on her sister today stating that she feels her sister is controlling her daughter. She still acknowledges vague auditory hallucinations. Compliant medication. For now continue treatment Review of Systems Except as stated in HPI: all other systems reviewed are Neg Objective Alert: Yes [place]: Person (ox4), Place, Date Mood: Oppositional Affect: Flat Memory Intact: Comment (Not formally assessed) Hallucinations: Auditory (her boyfriend talking to her), Visual (vague noticed outside her window) Delusions: Yes Delusion Type: Paranoid (concerning her sister) Suicidal: Ideation (Vague SI.) Homicidal: Ideation (No HI) Insight/Judgment Very poor Vitals/IOs Vital Signs Date Time Temp Pulse Resp B/P Pulse Ox O2 Delivery O2 Flow Rate FiO2 02/08/17 06:01 98.1 70 18 175/71 95 Intake and Output 02/07/17 02/07/17 02/08/17 08:00 16:00 00:00 Intake Total 480 ml Balance 480 ml Assessment & Plan Problem List: (1) Paranoid schizophrenia ICD Code: F20.0 Assessment & Plan Estimated LOS: days patient continues somewhat psychotic and delusional. Compliant medications. For now continue treatment Justification for Cont. Inpt. At this time patient will decompensate the placed in the lower level of care Discharge Planning To be determined Request HC Surrog/Guard Advoc?: Yes Rolo Bai MD Feb 08, 2017 12:21
[2017-02-08 18:00] VITALS: BP 124/82; PULSE 68; RESP 16; TEMP 97.4; O2SAT 96
[2017-02-09 06:00] VITALS: BP 167/73; PULSE 68; RESP 18; TEMP 98.5; O2SAT 95
[2017-02-09] MEDS: INSULIN ASPART SUPPLEMENTAL SCALE SQ SCH ×4 (06:37→21:00)
[2017-02-09] MEDS: ACETAMINOPHEN 325 MG TAB PO PRN ×2 (06:45→21:41)
[2017-02-09] MEDS: PRAVASTATIN SOD 20 MG TAB PO SCH (09:18)
[2017-02-09] MEDS: GABAPENTIN 300 MG CAP PO SCH ×3 (09:18→18:00)
[2017-02-09] MEDS: CARVEDILOL 12.5 MG TAB PO SCH ×2 (09:18→20:09)
[2017-02-09] MEDS: LISINOPRIL 10 MG TAB PO SCH (09:18)
[2017-02-09] MEDS: metFORMIN HCL 500 MG TAB PO SCH ×2 (09:18→18:00)
[2017-02-09] MEDS: CHOLECALCIFEROL (VIT D3) 1000 UNIT TAB PO SCH (09:18)
[2017-02-09] MEDS: ARIPiprazole 30 MG TAB PO SCH (09:19)
--- NOTE | 2017-02-09 12:33 | HHI.PYPN ---
Subjective Remarks Is seen in day room with nurse Vesta. Patient compliant medications. Patient continues somewhat labile and silly. Though now denies suicidality homicidality though she continues somewhat vague about auditory hallucinations. It appears there may be a bed available for her at a local [facility] tomorrow we need to consider possibility of discharge there. Counselor for with patient's daughter related to this Review of Systems Except as stated in HPI: all other systems reviewed are Neg Objective Alert: Yes [place]: Person (ox4), Place, Date Mood: Oppositional Affect: Flat Memory Intact: Comment (Not formally assessed) Hallucinations: Auditory (her boyfriend talking to her), Visual (vague noticed outside her window) Delusions: Yes Delusion Type: Paranoid (concerning her sister) Suicidal: Ideation (Vague SI.) Homicidal: Ideation (No HI) Insight/Judgment Poor Vitals/IOs Vital Signs Date Time Temp Pulse Resp B/P Pulse Ox O2 Delivery O2 Flow Rate FiO2 02/09/17 06:00 98.5 68 18 167/73 95 Intake and Output 02/08/17 02/08/17 02/09/17 08:00 16:00 00:00 Intake Total 240 ml Balance 240 ml Assessment & Plan Problem List: (1) Paranoid schizophrenia ICD Code: F20.0 Assessment & Plan Estimated LOS: days patient is somewhat psychotic and softer, compliant medications, continue to work placement issues Justification for Cont. Inpt. At this time patient will decompensate placed in a lower level of care Discharge Planning To be determined Request HC Surrog/Guard Advoc?: Yes Rolo Bai MD Feb 09, 2017 12:33
[2017-02-09 17:53] VITALS: BP 140/65; PULSE 60; RESP 16; TEMP 97.8; O2SAT 96
[2017-02-10 05:12] VITALS: BP 133/65; PULSE 57; RESP 16; TEMP 97.5; O2SAT 93
[2017-02-10] MEDS: INSULIN ASPART SUPPLEMENTAL SCALE SQ SCH ×4 (06:06→21:49)
[2017-02-10] MEDS: PRAVASTATIN SOD 20 MG TAB PO SCH (08:22)
[2017-02-10] MEDS: ARIPiprazole 30 MG TAB PO SCH (08:22)
[2017-02-10] MEDS: metFORMIN HCL 500 MG TAB PO SCH ×2 (08:22→17:13)
[2017-02-10] MEDS: CHOLECALCIFEROL (VIT D3) 1000 UNIT TAB PO SCH (08:22)
[2017-02-10] MEDS: CARVEDILOL 12.5 MG TAB PO SCH ×2 (08:22→21:45)
[2017-02-10] MEDS: LISINOPRIL 10 MG TAB PO SCH (08:23)
[2017-02-10] MEDS: GABAPENTIN 300 MG CAP PO SCH ×3 (08:23→17:13)
--- NOTE | 2017-02-10 12:34 | HHI.PYPN ---
Subjective Remarks Patient seen in dayroom with nurse Damir, chart review, patient compliant medication. To continue somewhat vigilant, but appears reprocessing the to work with us related to placement. Continues increase somewhat ambivalent about relationship with siblings Review of Systems Except as stated in HPI: all other systems reviewed are Neg Objective Alert: Yes [place]: Person (ox4), Place, Date Mood: Oppositional Affect: Flat Memory Intact: Comment (Not formally assessed) Hallucinations: Auditory (her boyfriend talking to her), Visual (vague noticed outside her window) Delusions: Yes Delusion Type: Paranoid (concerning her sister) Suicidal: Ideation (Vague SI.) Homicidal: Ideation (No HI) Insight/Judgment Very poor Vitals/IOs Vital Signs Date Time Temp Pulse Resp B/P Pulse Ox O2 Delivery O2 Flow Rate FiO2 02/10/17 05:12 97.5 57 16 133/65 93 Intake and Output 02/09/17 02/09/17 02/09/17 07:59 15:59 23:59 Intake Total 840 ml 360 ml Balance 840 ml 360 ml Assessment & Plan Problem List: (1) Paranoid schizophrenia ICD Code: F20.0 Assessment & Plan Estimated LOS: days patient continue psychotic but calmer, still some confusion related to placement for now continue treatment Justification for Cont. Inpt. At this time patient will decompensate if placed in a lower level of care Discharge Planning To be determined Request HC Surrog/Guard Advoc?: Yes Rolo Bai MD Feb 10, 2017 12:34
[2017-02-10 15:59] VITALS: BP 126/69; PULSE 65; RESP 16; TEMP 98.6; O2SAT 95
[2017-02-11] MEDS: ACETAMINOPHEN 325 MG TAB PO PRN (05:45)
[2017-02-11 06:26] VITALS: BP 116/62; PULSE 73; RESP 16; TEMP 98; O2SAT 96
[2017-02-11] MEDS: INSULIN ASPART SUPPLEMENTAL SCALE SQ SCH ×2 (07:00→11:34)
[2017-02-11] MEDS: metFORMIN HCL 500 MG TAB PO SCH (08:54)
[2017-02-11] MEDS: CHOLECALCIFEROL (VIT D3) 1000 UNIT TAB PO SCH (08:54)
[2017-02-11] MEDS: ARIPiprazole 30 MG TAB PO SCH (08:54)
[2017-02-11] MEDS: CARVEDILOL 12.5 MG TAB PO SCH (08:54)
[2017-02-11] MEDS: PRAVASTATIN SOD 20 MG TAB PO SCH (08:54)
[2017-02-11] MEDS: GABAPENTIN 300 MG CAP PO SCH ×2 (08:54→12:38)
[2017-02-11] MEDS: LISINOPRIL 10 MG TAB PO SCH (08:55)
[2017-02-11] MEDS ORDERED: METF500 PO (10:39)
[2017-02-11] MEDS ORDERED: PRAV20TA PO (10:39)
[2017-02-11] MEDS ORDERED: NEUR300C PO (10:39)
[2017-02-11] MEDS ORDERED: ABIL30TA2 PO (10:39)
[2017-02-11] MEDS ORDERED: VITA1000 PO (10:39)
[2017-02-11] MEDS ORDERED: AMLO10 PO (10:39)
[2017-02-11] MEDS ORDERED: LISI30TA4 PO (10:39)
[2017-02-11] MEDS ORDERED: CORE25TA PO (10:39)
--- NOTE | 2017-02-11 10:44 | HHI.DS ---
Psychiatry Discharge Summary Inpatient Psychiatric care?: Yes Advance Directive: Yes Mental Health AdvanceDirective: No Health Care Proxy: No Admission Admission Date January 24, 2017 at 11:27 Admission Diagnosis: (1) Paranoid schizophrenia ICD Code: F20.0 Brief History Ms. Diaz is a 72-year-old female with a reported history of schizophrenia who presents under a [place] act by [place] [employer] alleging that the patient has been nonadherent with her medication and neglecting care of herself and also made statements that she would rather . Reviewing the electronic medical record, it appears this is patient's first visit to [place]. Patient seen and examined with nurse. Chart reviewed. Case discussed with nursing staff. On my examination today, the patient reports that she comes in because she got into an argument with her daughter with whom she lives. She says "I was getting some food out of the refrigerator and she told me to close the refrigerator door because it was hot, as if I didn't know that." The 2 got into a verbal argument and the patient says that she swung at her daughter. She endorses auditory hallucinations of "a man, a good man who tells me what to do." She denies any command auditory hallucinations to hurt herself or others. She does not describe any other hallucinatory experiences. She describes herself as quick-tempered. She endorses suicidal ideation by "pills or something like that" but denies any actual suicide intent saying "I'll leave that up to the Lord." Remainder of the psychiatric ROS is negative. Past psychiatric history: The patient reports a history of schizophrenia. She says that she was seeing a Dr. Paul in [facility] and was previously on Abilify to good effect but stopped taking this medication because she doesn't feel like she needed it anymore. She says her most recent psychiatric admission was about 10 years ago in [facility]. She denies a history of suicide attempts. Tobacco Use In Past 30 Days: No Tobacco Past 30 Days Alcohol Use: Never Hospital Course Patient's initial psychosis with auditory hallucinations slowly soft with her compliance with medication and participation in milieu. She continues is some vagueness related to relationship with her family but overall patient has shown no behavioral problems. Patient denies suicidality homicidality states the voices are gone right now denies visions. Patient does have all with goal to return to the [facility]. However the placement has been found for her at [facility]. At this time patient is quite willing to go to that facility. At this time patient reached maximum benefit this hospitalization. Patient be discharged today to [facility] Rx 1 month follow-up mental health services in that facility Results Blood Pressure 116 / 62 Vital Signs Date Time Temp Pulse Resp B/P Pulse Ox O2 Delivery O2 Flow Rate FiO2 02/11/17 06:26 98.0 73 16 116/62 96 Urine toxicology negative blood alcohol level negative Summary of Procedures None done Imaging Last Impressions Liver Ultrasound 01/25/17 0000 Signed Impressions: Service Date/Time: Wednesday, January 25, 2017 08:14 - CONCLUSION: 1. Incidental note of nonspecific trace right perinephric fluid. Right kidney is otherwise normal in appearance. 2. Diffusely increased hepatic echogenicity may reflect mild hepatic steatosis. 3. Otherwise, unremarkable ultrasound examination of the right upper quadrant. Scar Reinoso MD Head CT 01/23/17 0000 Signed Impressions: Service Date/Time: Monday, January 23, 2017 21:41 - CONCLUSION: 1. Moderate periventricular and subcortical white matter small vessel ischemic changes bilaterally. 2. Diffuse cerebral atrophy. 3. No acute infarct, acute hemorrhage, mass effect or extra-axial fluid collections. Suhas Patino MD Chest X-Ray 01/23/17 0000 Signed Impressions: Service Date/Time: Monday, January 23, 2017 22:22 - CONCLUSION: 1. Bibasilar streakiness consistent with atelectasis and/or mild infiltrates. Clinical correlation is recommended. Suhas Patino MD Pending results at discharge: No Medications # of Antipsychotic meds at D/C: 1 Approp Antipsych med options 1 - Minimum of three failed multiple trials of monotherapy. 2 - Documented plan to taper to monotherapy due to previous use of multiple meds OR cross-taper in progress at D/C. 3 - Documentation of augmentation of Clozapine. 4 - Justification other than those listed in allowable values 1-3, document here : Discharge Discharge Date: Feb 11, 2017 Discharge Diagnosis: (1) Paranoid schizophrenia Diagnosis: Principal ICD Code: F20.0 Mental Status Exam at Disch Alert oriented slightly built white female calm cooperative. She is normal active. Her mood is euthymic slightly irritable, affect shows some increased range and intensity. Speech rate and rhythm are somewhat increased is mildly tangential there are no other 3 visions hallucinations at this time no delusions. Insight and judgment poor to fair cognition grossly intact Pt Condition on Discharge: Stable Discharge Disposition: [facility] Discharge Instructions Diet Instructions: As Tolerated, No Restrictions Activities you can perform: Regular-No Restrictions Scheduled Appointment: Lester Cerna Appointment Date: Feb 14, 2017 Appointment Time: 7:30am Discharge Time > 30 minutes Discharge/Advance Care Plan Health Problems: (1) Paranoid schizophrenia Goals to promote your health * To prevent worsening of your condition and complications * To maintain your health at the optimal level Directions to meet your goals Take your medications as prescribed Follow your dietary instruction Follow activity as directed Keep your appointments as scheduled Take your immunizations and boosters as scheduled If your symptoms worsen call your PCP, if no PCP go to Urgent Care Center or Emergency Room For 21/03 questions related to your inpatient stay or results of tests pending at discharge, please contact Dr. Rolo Bai at Smoking is Dangerous to Your Health. Avoid second hand smoking Rolo Bai MD Feb 11, 2017 10:44
== END 2017-02-11 12:55 | DRG 885 ==
LOC: NEPD 20:48 → NEDA 01-24 11:27 → H250 01-24 12:20 → H4EA 01-25 12:35 → H260 01-29 12:30
PROVIDERS: ADMIT Psychiatry & Neurology Psychiatry; ATTEND Psychiatry & Neurology Psychiatry
DX: F20.0 Paranoid schizophrenia (principal); F03.90 Unspecified dementia, unspecified severity, without behavioral disturbance, psychotic disturbance, mood disturbance, and anxiety; R45.851 Suicidal ideations; N39.0 Urinary tract infection, site not specified; E11.65 Type 2 diabetes mellitus with hyperglycemia; I10 Essential (primary) hypertension; E11.42 Type 2 diabetes mellitus with diabetic polyneuropathy; E66.9 Obesity, unspecified; B95.2 Enterococcus as the cause of diseases classified elsewhere; E55.9 Vitamin D deficiency, unspecified; K76.0 Fatty (change of) liver, not elsewhere classified; Z87.891 Personal history of nicotine dependence; Z79.4 Long term (current) use of insulin; Z91.14 Patient's other noncompliance with medication regimen; Z79.82 Long term (current) use of aspirin; Z87.442 Personal history of urinary calculi
CPT/HCPCS: 70450; 71010; 76705; 80048; 80053; 80061; 80074; 80076; 80307; 81001; 82306; 82607; 82948; 83036; 83880; 84443; 85025; 87077; 87086; 87186; 90732; 96365; 96372; 96375; 96376; J0360; J0696; J1815; J7030; L3908